=== PATIENT | female | born 1970 | race Caucasian/White ===

== ENCOUNTER 2020-04-06 20:54 | Inpatient (IN) | payer BC, SELFPAY ==
--- NOTE | 2020-04-06 | US_ITS ---
Indication: Redness EXAMINATION: Diagnostic ultrasound right breast. Findings; Real-time by the director of loss prevention. The patient directs the director of loss prevention to the region of pain problem o'clock in the right breast. Some prominent ducts are seen here but there is no evidence of suspicious filling defect to suggest complication. No evidence for significant wall thickening. There is certainly no loculated abscess here. No mass is identified. IMPRESSION: Where the patient directs the director of loss prevention 12:00 right breast there is felt to be some dilated ducts and possibly some mildly complex cystic change but no defined abscess is felt to be present. Assessment; BI-RADS 0. Recommendation; diagnostic mammogram
[2020-04-06 21:05] VITALS: BP 169/85; PULSE 94; RESP 18; TEMP 37.8; O2SAT 94; BMI 39.9
[2020-04-06 21:50] LABS: Basophils Percent Auto 0.2 % (0-2); Eosinophils Absolute Auto 0.2 X10*3/uL (0.0-0.4); Hematocrit 35.8 % (37-47); Hemoglobin 12.2 g/dl (12.0-16.0); Imm Gran Abs Auto 0.08 X10*3/uL (0.00-0.03); Imm Gran Pct Auto 0.5 % (0.0-0.4); Lymphocytes Absolute Auto 1.7 X10*3/uL (1.2-4.9); Mean Corpuscular HGB Conc 34.1 g/dl (31.0-35.0); Mean Corpuscular Hemoglobin 32.1 pg (27.0-33.0); Mean Corpuscular Volume 94.2 fL (80-98); Mean Platelet Volume 9.3 fL (9.4-12.3); Monocytes Absolute Auto 0.9 X10*3/uL (0.1-1.2); Monocytes Percent Auto 5.4 % (2-11); Neutrophils Absolute Auto 13.6 X10*3/uL (2.0-8.3); Neutrophils Percent Auto 82.9 % (45-73); Platelet Count 319 X10*3/uL (160-400); Red Cell Distribution Width 12.4 % (11.0-16.0); White Blood Count 16.4 X10*3/uL (4.8-10.8)
[2020-04-06 21:51] LABS: MANUAL DIFF FLAG NO
[2020-04-06] MEDS: Piperacillin Sodium/Tazobactam 3.375 GM in 0.9 % Sodium Chloride 50 ML IV (21:54)
[2020-04-06] MEDS: Ketorolac Tromethamine 30 MG/ML VIAL IVPUSH (21:54)
[2020-04-06 22:05] LABS: Partial Thromboplastin Time 27.2 SEC (24.1-38.0)
[2020-04-06 22:09] LABS: INTERNATIONAL NORM RATIO 1.1 (0.9-1.1); Prothrombin Time 13.1 SEC (10.8-13.0)
[2020-04-06 22:20] LABS: Lactic Acid 0.8 mmol/L (0.5-2.0)
[2020-04-06 22:24] LABS: Alanine Aminotransferase 23 U/L (0-31); Albumin Level 3.9 g/dL (3.5-5.0); Alkaline Phosphatase 97 U/L (39-117); Anion Gap 15 (12-20); Aspartate Amino Transferase 16 U/L (5-31); Bilirubin Direct 0.3 mg/dL (0.0-0.5); Bilirubin Total 0.4 mg/dL (0.0-1.0); Blood Urea Nitrogen 16 mg/dL (9-16); Calcium 9.1 mg/dL (8.4-10.2); Carbon Dioxide 21 mmol/L (22-29); Chloride 107 mmol/L (96-108); Creatinine Clr Calc Pharmacy 112.3; Estimated Glomerular Filt Rate > 60; Glucose Random 100 mg/dL (60-115); Lipase 10 U/L (8-78); Potassium 3.5 mmol/l (3.3-5.1); Sodium 139 mmol/L (135-145); Total Protein 6.6 g/dL (6.5-8.0)
[2020-04-06 22:41] VITALS: BP 137/73; PULSE 79; RESP 16; TEMP 36.6; O2SAT 98
--- NOTE | 2020-04-06 22:47 | ED.GENADULT ---
HPI - General Adult General Chief complaint: General Medical Stated complaint: SEPSIS? Time Seen by Provider: 04/06/20 21:17 Mode of arrival: ambulatory History of Present Illness HPI narrative: 49-year-old female states for the past 5 days noticed a small redness to her right breast. Saw her OBGYN and sent to Interventional Radiology for needle aspiration. At that point yesterday she was placed on p.o. Keflex. Since then her redness that has worsened. Today she had reported fevers 101 at home. Positive chills. Denies discharge from nipple. Denies any spider bites or scrapes abrasions to right breast. Patient is not Onset (ago): day(s) ( 5 days) Severity: moderate Severity scale (1-10): 4 Associated symptoms: nausea/vomiting Related Data Home Medications Medication Instructions Recorded Confirmed Lamictal 200 mg PO DAILY 04/06/20 04/06/20 Allergies Allergy/AdvReac Type Severity Reaction Status Date / Time No Known Allergies Allergy Verified 04/06/20 21:05 Review of Systems Constitutional: Comments: Constitutional : No Weight loss, positive Fever, positive Chills, No Night Sweats, No Fatigue, No Malaise ENT/Mouth : No Hearing loss, No Ear Pain, No Nasal Congestion, No Sinus Pain, No Hoarseness, No sore throat, No Rhinorrhea, No Swallowing Difficulty Eyes: No Eye Pain, No Swelling, No Redness, No Foreign Body, No Discharge, No Vision Changes Cardiovascular : No Chest Pain, No SOB, No Dyspnea on Exertion, No Orthopnea, No Edema, No Palpitations Respiratory : No Cough, No Sputum, No Wheezing, No Smoke Exposure, No Dyspnea Gastrointestinal : No Nausea, No Vomiting, No Diarrhea, No Constipation, No abdominal Pain, No Hematochezia, No Melena Genitourinary : no irregular bleeding, No Dysuria, No Urinary Frequency, No Hematuria, No Urinary Incontinence, No Urgency, No Flank Pain, No Urinary Flow Changes, No Hesitancy Musculoskeletal : No joint pain, No Myalgias, No Joint Swelling Skin : No Skin Lesions, red erythematous rash to right breast Neuro : No Weakness, No Numbness, No Paresthesias, No Loss of Consciousness, No Dizziness, No Headache Psych : No Anxiety/Panic, No Depression, No SI/HI/AH/VH, No Social Issues, Heme/Lymph: No Bruising, No Bleeding,No Lymphadenopathy Endocrine : No Polyuria, No Polydipsia, No Temperature Intolerance [facility] Past Medical History Surgical History H/O tubal ligation Family History Family History Other Family history non-contributory Social History Social History Advance Directives: No Advance Directives Information Provided: No Physical Exam Vital Signs and I&O and Narrative: Vital Signs and I&O: Vital Signs Temp 97.8 F 04/07/20 03:46 Pulse 80 04/07/20 03:46 Resp 18 04/07/20 03:46 BP 141/85 H 04/07/20 03:46 Pulse Ox 99 04/07/20 03:46 Intake & Output 04/06/20 04/06/20 04/07/20 06:59 18:59 06:59 Intake Total 3315.86 / 3420.86 Balance 3315.86 / 3420.86 Weight 108.862 kg Intake: Intake, IV Amoun t 3315.86 / 3420.86 Piperacillin S odium/Tazobactam 50 / 50 3.375 gm In 0. 9 % Sodium Chloride 50 ml @ 100 mls/hr IV ONCE ONE Rx#:[id number] 0.9 % Sodium C hloride 3,265.86 3265.86 / 3265.86 ml @ 3265.86 m ls/hr IVCONT .Q1H ONE Rx#:[id number] Body Mass Index 39.9 vital signs reviewed Const: Other: Appearance: Alert. Oriented X3. No acute distress. Eyes: Pupils equal, round and reactive to light. ENT: Pharynx normal. Neck: Normal inspection. Neck supple. No lymph nodes noted. No crepitus CVS: Normal heart rate and rhythm. Pulses normal. Normal S1 and S2 Respiratory: No respiratory distress. Breath sounds normal. No Wheezing. No rales Abdomen: Soft and nontender. No rigidity. No distention. good BS x4 Skin: Skin warm and dry. Normal skin color. Normal skin turgor. Extremities: No lower extremity edema. Neurovascular intact to all extremities. No Lacerations. No Rash Neuro: Oriented X 3. No motor deficit. No sensory deficit. Moving all extermities. No slurred speech. breast: female staff at bedside for evaluation. Sandra, patient with right breast erythema distally. However superior to the areola. No discharge from nipple Course Course Course Narrative: multiple real exams were performed on patient by me. Secondary to suspect sepsis. Will get an ultrasound to rule out abscess IV fluids and IV antibiotics Reevaluation(s) Reevaluation #1: focused exam performed by me at this point I spoke with Dr. Freddy marvin would admit the patient Time: 22:52 Medical Decision Making MDM Narrative Medical decision making narrative: 49-year-old female admitted with sepsis, right breast cellulitis, no abscess seen on ultrasound. Patient receive IV antibiotics admission Lab Data Result diagrams: 04/07/20 04:37 04/07/20 04:37 Labs: Lab Results 04/06/20 04/06/20 04/06/20 Range/Units 21:43 21:43 21:43 WBC 16.4 H (4.8-10.8) X10*3/uL RBC 3.80 L (4.20-5.50) X10*6/uL Hgb 12.2 (12.0-16.0) g/dl Hct 35.8 L (37-47) % MCV 94.2 (80-98) fL MCH 32.1 (27.0-33.0) pg MCHC 34.1 (31.0-35.0) g/dl RDW 12.4 (11.0-16.0) % Plt Count 319 (160-400) X10*3/uL MPV 9.3 L (9.4-12.3) fL Immature Gran % (Auto) 0.5 H (0.0-0.4) % Neut % (Auto) 82.9 H (45-73) % Lymph % (Auto) 10.0 L (20-40) % [place] % (Auto) 5.4 (2-11) % Eos % (Auto) 1.0 (0-4) % Baso % (Auto) 0.2 (0-2) % Lymph # (Auto) 1.7 (1.2-4.9) X10*3/uL [place] # (Auto) 0.9 (0.1-1.2) X10*3/uL Eos # (Auto) 0.2 (0.0-0.4) X10*3/uL Baso # (Auto) 0.0 (0.0-0.2) X10*3/uL Abs Immat Gran (auto) 0.08 H (0.00-0.03) X10*3/uL Absolute Neuts (auto) 13.6 H (2.0-8.3) X10*3/uL Absolute Nucleated RBC 0.000 (0.0-0.012) X10*3/uL Nucleated RBC % (auto) 0.0 (0.0-0.2) /100WBC PT 13.1 H (10.8-13.0) SEC INR 1.1 (0.9-1.1) APTT 27.2 (24.1-38.0) SEC Sodium 139 (135-145) mmol/L Potassium 3.5 (3.3-5.1) mmol/l Chloride 107 (96-108) mmol/L Carbon Dioxide 21 L (22-29) mmol/L Anion Gap 15 (12-20) BUN 16 (9-16) mg/dL Creatinine 0.76 (0.5-1.4) mg/dL Estim Creat Clear Calc 112.3 Estimated GFR > 60 Random Glucose 100 (60-115) mg/dL Lactic Acid (0.5-2.0) mmol/L Calcium 9.1 (8.4-10.2) mg/dL Total Bilirubin 0.4 (0.0-1.0) mg/dL Direct Bilirubin 0.3 (0.0-0.5) mg/dL AST 16 (5-31) U/L ALT 23 (0-31) U/L Alkaline Phosphatase 97 (39-117) U/L Total Protein 6.6 (6.5-8.0) g/dL Albumin 3.9 (3.5-5.0) g/dL Lipase 10 (8-78) U/L 04/06/20 Range/Units 21:43 WBC (4.8-10.8) X10*3/uL RBC (4.20-5.50) X10*6/uL Hgb (12.0-16.0) g/dl Hct (37-47) % MCV (80-98) fL MCH (27.0-33.0) pg MCHC (31.0-35.0) g/dl RDW (11.0-16.0) % Plt Count (160-400) X10*3/uL MPV (9.4-12.3) fL Immature Gran % (Auto) (0.0-0.4) % Neut % (Auto) (45-73) % Lymph % (Auto) (20-40) % [place] % (Auto) (2-11) % Eos % (Auto) (0-4) % Baso % (Auto) (0-2) % Lymph # (Auto) (1.2-4.9) X10*3/uL [place] # (Auto) (0.1-1.2) X10*3/uL Eos # (Auto) (0.0-0.4) X10*3/uL Baso # (Auto) (0.0-0.2) X10*3/uL Abs Immat Gran (auto) (0.00-0.03) X10*3/uL Absolute Neuts (auto) (2.0-8.3) X10*3/uL Absolute Nucleated RBC (0.0-0.012) X10*3/uL Nucleated RBC % (auto) (0.0-0.2) /100WBC PT (10.8-13.0) SEC INR (0.9-1.1) APTT (24.1-38.0) SEC Sodium (135-145) mmol/L Potassium (3.3-5.1) mmol/l Chloride (96-108) mmol/L Carbon Dioxide (22-29) mmol/L Anion Gap (12-20) BUN (9-16) mg/dL Creatinine (0.5-1.4) mg/dL Estim Creat Clear Calc Estimated GFR Random Glucose (60-115) mg/dL Lactic Acid 0.8 (0.5-2.0) mmol/L Calcium (8.4-10.2) mg/dL Total Bilirubin (0.0-1.0) mg/dL Direct Bilirubin (0.0-0.5) mg/dL AST (5-31) U/L ALT (0-31) U/L Alkaline Phosphatase (39-117) U/L Total Protein (6.5-8.0) g/dL Albumin (3.5-5.0) g/dL Lipase (8-78) U/L Critical Care Time Critical Care Time Critical Care Time: Yes Total Critical Care Time: 35 Attestation: I tested critical care time spent with patient Discharge Plan Discharge Clinical Impression: Cellulitis of female breast Sepsis Qualifiers: Sepsis type: sepsis due to unspecified organism Sepsis acute organ dysfunction status: without acute organ dysfunction Qualified Code(s): A41.9 - Sepsis, unspecified organism Patient Disposition: Admitted As Inpatient Interventions: Admission Worksheet (ED) Last Done: 04/07/20 03:38 Discharge Date/Time: 04/07/20 03:39
[2020-04-07 00:24] VITALS: BP 156/87; PULSE 83; RESP 18; O2SAT 99
[2020-04-07] MEDS: ondansetron HCL 4 MG/2 ML VIAL IVPUSH (00:58)
--- NOTE | 2020-04-07 00:59 | PC.NURSE ---
Pt medicated per EMAR with Zofran. Pt reports that pain remaisn 5/10, increases with movement and position. Pt resting in bed watching TV, aware of plan to admit.
--- NOTE | 2020-04-07 02:29 | PM.IMHP ---
History of Present Illness Date of Service: 04/07/20 Chief Complaint: right breast pain 49 y/o female with PMHX of seizure who presented from home due to right breast pain. Per history provided by the patient, on thursday night noticed a significant discomfort in the rigth breast which was subsequently followed by a worsening erythema on thursday morning. Patient was evaluated by her OBGYN and started on Keflex yesterday for cellulitis. Patient went as well for an IR guided procedure in the right breast for a suspected obstructed mammary duct . A small serosanguienos fluid of 1ml was drained per patient during that procedure. After starting PO antbx noticed that eyrethema and discomfort has been worsening since and now is associated with chills and fever at home of 101. Patient presented to the ER for further evaluation. Vitals obtained found patient to be hypertensive 169/85 mmHg, temp of 100.1, HR of 94, WBC of 16. US breast showing no evidence of underlying abscess at present. Sepsis criteria met. Bcx obtained and patient was given one dose of zosyn. Decision for admission given. Patient seen and evaluated at the bedside, ROS as above otherwise negative. Physical exam positive for Right breast tenderness, erythema around areola, hot to touch. PMHX: Seizure PSx: none Toxic habits: No hx of alcohol abuse, smoking or IVDA Review of Systems Constitutional: Constitutional: Reports other (chills, fever ) Integumentary/Breasts: Skin/Breast: Reports other (right breast pain, erythema ) PMFSH Family History Other Family history non-contributory Surgical History H/O tubal ligation Social History Advance Directives: No Advance Directives Information Provided: No Meds Allergies Allergy/AdvReac Type Severity Reaction Status Date / Time No Known Allergies Allergy Verified 04/06/20 21:05 Home Medications Medication Instructions Recorded Confirmed Type Lamictal 200 mg PO DAILY 04/06/20 04/06/20 History Physical Exam Vital Signs and Narrative: Vital Signs: Last Vital Signs Temp 97.8 F 04/06/20 22:41 Pulse 83 10/10/20 00:24 Resp 18 04/07/20 00:24 BP 156/87 H 04/07/20 00:24 Pulse Ox 99 04/07/20 00:24 Body Mass Index 39.9 Const: General: cooperative, healthy appearing and comfortable Orientation/consciousness: patient oriented x3 HENMT: Head: Yes normal to inspection Eyes: General: appearance normal, both eyes and all related structures Neck: Yes normal visual inspection Chest: Chest palpation & inspection: normal inspection of the chest Resp: Effort & Inspection: normal respiratory effort Cardio: Jugular venous distension: no JVD Rhythm: regular rhythm Heart sounds: S1 normal heart sound present and S2 normal heart sound present GI: Inspection: Yes normal to inspection Skin: Nails: other (right breast tenderness, erythema) Neuro: General: patient oriented x3 Extrem: General: Yes normal to inspection Psych: Appearance: grossly normal Results Labs Labs: Laboratory Tests 04/06/20 04/06/20 04/06/20 21:43 21:43 21:43 WBC 16.4 H RBC 3.80 L Hgb 12.2 Hct 35.8 L MCV 94.2 MCH 32.1 MCHC 34.1 RDW 12.4 Plt Count 319 MPV 9.3 L Immature Gran % (Auto) 0.5 H Neut % (Auto) 82.9 H Lymph % (Auto) 10.0 L [place] % (Auto) 5.4 Eos % (Auto) 1.0 Baso % (Auto) 0.2 Lymph # (Auto) 1.7 [place] # (Auto) 0.9 Eos # (Auto) 0.2 Baso # (Auto) 0.0 Abs Immat Gran (auto) 0.08 H Absolute Neuts (auto) 13.6 H Absolute Nucleated RBC 0.000 Nucleated RBC % (auto) 0.0 PT 13.1 H INR 1.1 APTT 27.2 Sodium 139 Potassium 3.5 Chloride 107 Carbon Dioxide 21 L Anion Gap 15 BUN 16 Creatinine 0.76 Estim Creat Clear Calc 112.3 Estimated GFR > 60 Random Glucose 100 Lactic Acid Calcium 9.1 Total Bilirubin 0.4 Direct Bilirubin 0.3 AST 16 ALT 23 Alkaline Phosphatase 97 Total Protein 6.6 Albumin 3.9 Lipase 10 04/06/20 21:43 WBC RBC Hgb Hct MCV MCH MCHC RDW Plt Count MPV Immature Gran % (Auto) Neut % (Auto) Lymph % (Auto) [place] % (Auto) Eos % (Auto) Baso % (Auto) Lymph # (Auto) [place] # (Auto) Eos # (Auto) Baso # (Auto) Abs Immat Gran (auto) Absolute Neuts (auto) Absolute Nucleated RBC Nucleated RBC % (auto) PT INR APTT Sodium Potassium Chloride Carbon Dioxide Anion Gap BUN Creatinine Estim Creat Clear Calc Estimated GFR Random Glucose Lactic Acid 0.8 Calcium Total Bilirubin Direct Bilirubin AST ALT Alkaline Phosphatase Total Protein Albumin Lipase Assessment and Plan (1) Cellulitis of female breast: Status: Acute (2) Sepsis: Qualifiers: Sepsis acute organ dysfunction status: without acute organ dysfunction Sepsis type: sepsis due to unspecified organism Qualified Code(s): A41.9 - Sepsis, unspecified organism Status: Acute (3) Seizure: Status: Acute Sepsis likely secondary to right breast cellulitis Hypertensive at present 156/87 mmHg. HR of 83 IV hydration. Keep MAP >65 mmHg Lactate normal Continue with unasyn for gram neg / anaerobic coverage Follow up Bcx Infectious disease consult in the am Hx of Seizures continue with lamictal home dose
[2020-04-07 02:55] VITALS: BP 154/87; PULSE 79; RESP 16
--- NOTE | 2020-04-07 03:08 | PC.NURSE ---
Report given to M/S RN. Dr Hayes contacted for orders regarding administration of Hydralazine due to BP of 150/74. Awaiting instructions prior to transport to floor.
--- NOTE | 2020-04-07 03:28 | PC.NURSE ---
Per MD Freddy Marvin, to hold Hydralazine due to decreased BP.
[2020-04-07] MEDS: 0.9 % Sodium Chloride 1,000 ML 75 ML IVCONT ×2 (03:39→16:53)
[2020-04-07 03:46] VITALS: BP 141/85; PULSE 80; RESP 18; TEMP 36.6; O2SAT 99
[2020-04-07 04:42] LABS: MANUAL DIFF FLAG NO
[2020-04-07 04:48] LABS: Basophils Percent Auto 0.3 % (0-2); Eosinophils Absolute Auto 0.2 X10*3/uL (0.0-0.4); Eosinophils Percent Auto 1.2 % (0-4); Hematocrit 33.7 % (37-47); Hemoglobin 11.5 g/dl (12.0-16.0); Imm Gran Abs Auto 0.08 X10*3/uL (0.00-0.03); Imm Gran Pct Auto 0.5 % (0.0-0.4); Lymphocytes Absolute Auto 2.6 X10*3/uL (1.2-4.9); Lymphocytes Percent Auto 16.4 % (20-40); Mean Corpuscular HGB Conc 34.1 g/dl (31.0-35.0); Mean Corpuscular Hemoglobin 32.9 pg (27.0-33.0); Mean Corpuscular Volume 96.3 fL (80-98); Mean Platelet Volume 9.4 fL (9.4-12.3); Monocytes Percent Auto 6.4 % (2-11); Neutrophils Absolute Auto 11.8 X10*3/uL (2.0-8.3); Neutrophils Percent Auto 75.2 % (45-73); Platelet Count 291 X10*3/uL (160-400); Red Cell Distribution Width 12.5 % (11.0-16.0); White Blood Count 15.6 X10*3/uL (4.8-10.8)
[2020-04-07] MEDS: Ampicillin Sodium/Sulbactam Na 1.5 GM in 0.9 % Sodium Chloride 100 ML IV ×2 (05:00→11:21)
[2020-04-07] MEDS: Ketorolac Tromethamine 15 MG/ML VIAL IVPUSH (05:01)
--- NOTE | 2020-04-07 05:10 | MHC.PIE ---
P; PT ARRIVED FROM ED C/O PAIN TO GEN BODY AND RT BREAST. NOTE; PT REPORTS TORADOL IN ED WORED FOR PAIN, PT ASLO ASKING FOR MOTRIN 800 MG PO Q6 FOR PAIN. NOTE; PT HAD NAUSEA IN ED, ZOFRAN GIVEN WITH GOOD EFFECT, ? NO PRN ZOFRAN ? I; DR SMART NOTIFIED; TORADOL 15 MG IV NOW E; WILL CONT TO MONITOR
[2020-04-07 05:13] LABS: Alanine Aminotransferase 20 U/L (0-31); Albumin Level 3.6 g/dL (3.5-5.0); Alkaline Phosphatase 87 U/L (39-117); Anion Gap 11 (12-20); Aspartate Amino Transferase 15 U/L (5-31); Bilirubin Total 0.3 mg/dL (0.0-1.0); Blood Urea Nitrogen 11 mg/dL (9-16); Carbon Dioxide 21 mmol/L (22-29); Chloride 111 mmol/L (96-108); Creatinine Clr Calc Pharmacy 123.7; Estimated Glomerular Filt Rate > 60; Glucose Random 76 mg/dL (60-115); Potassium 3.4 mmol/l (3.3-5.1); Sodium 140 mmol/L (135-145); Total Protein 6.1 g/dL (6.5-8.0)
[2020-04-07 07:48] VITALS: BP 155/88; PULSE 84; RESP 18; TEMP 37.3; O2SAT 99
[2020-04-07] MEDS: 0.9 % Sodium Chloride Flush 3 ML SYRINGE IVFLUSH (07:48)
[2020-04-07] MEDS: lamoTRIgine 100 MG TABLET 200 MG PO (07:49)
[2020-04-07] MEDS: oxyCODONE HCl Immed Release 5 MG TABLET PO ×4 (08:20→23:54)
--- NOTE | 2020-04-07 11:34 | MHC.CM.PN ---
SHIPPING CLERK CRATING completed with pt and daughter who was at bedside. Pt reports she lives at home with her 16 yo daughter but spends half of her time at her older daughters home. Pt does not have any DME not any home services. Pt does drive and her car is here. Pt does not have a PCP at this time but does know how to obtain one based on her insurance protocol. Pt completed a HCP today naming her older daughter, Leigha Miller ([phone]) as her agent. Current DC plan is home with no services
[2020-04-07] MEDS: Acetaminophen 325 MG TABLET 650 MG PO ×2 (12:42→18:48)
--- NOTE | 2020-04-07 14:59 | W.PM.IDCN ---
History of Present Illness Data of Consult Service Date: 04/07/20 Requesting physician: Perico Carvalho Primary Care Provider: None Physician HPI Reason for consult: breast pain right She presents with right breast pain for 4 days She woke up at night with pain Thursday night She felt pain worse next day and had u/s right breast showed fluid on 04/05 She has staph aureus culture,MSSA She doesnt get mammograms Review of Systems Review of Systems: Yes all other systems are reviewed and are negative Integumentary/Breasts: Skin/Breast: Reports skin swelling PMFSH Family History Family History Other Family history non-contributory Surgical History Surgical History H/O tubal ligation Social History Social History Currently Displaying Signs/Symptoms of Drug Intoxication Withdrawal: No Advance Directives: No Advance Directives Information Provided: No Do you have thoughts of harming others: None Do you have a plan to hurt others: No Plan service: No Current occupational status: employed Meds Allergies Allergy/AdvReac Type Severity Reaction Status Date / Time No Known Allergies Allergy Verified 04/06/20 21:05 Home Medications Medication Instructions Recorded Confirmed Type Lamictal 200 mg PO DAILY 04/06/20 04/06/20 History Physical Exam Vital Signs: Vital Signs: Vital Signs Temp Pulse Resp BP Pulse Ox 04/07/20 07:48 99.1 F 84 18 155/88 H 99 04/07/20 03:46 97.8 F 80 18 141/85 H 99 04/07/20 02:55 79 16 154/87 H 04/07/20 00:24 83 18 156/87 H 99 04/06/20 22:41 97.8 F 79 16 137/73 98 04/06/20 21:05 100.1 F 94 18 169/85 H 94 Body Mass Index 39.9 Const: General: cooperative HENMT: Head: Yes normal to inspection Resp: Effort & Inspection: normal respiratory effort Cardio: Jugular venous distension: no JVD GI: Inspection: Yes normal to inspection Abdomen image: 1. breast thickening 2. breast thickening,redness 3. nipple some puckering Assessment and Plan (1) Cellulitis of female breast: Problem details: She has fever and redness MSSA Status: Acute May continue Unasyn Duration to be determined Surgery to look at area determine if abscess,less likely breast cancer
[2020-04-07 15:14] VITALS: BP 115/63; PULSE 86; RESP 18; TEMP 36.5; O2SAT 95
[2020-04-07] MEDS: Clindamycin Phosphate/D5W 900 MG/50 ML PIGGYBACK 50 MG IV (16:57)
--- NOTE | 2020-04-07 17:41 | PM.EVENT ---
Event Note Event Note: Day team follow up S seen this Am feeling better but still some pain, denies discharge records obtained from c&s done at outside facility (on the physical chart) O vitals -- last documented gen - nad cvs - s1s2 lungs - clear abd - soft nt skin -- R breast erythema, tenderness; do feel in area of induration without fluctuation, some nipple puckering? A/P 49 yo with breast cellulitis C&S from cultures drawn at outside facility -- MSSA, resistant to amp but otherwise okay changed iv antibiotics to clinda (d/w ID) ID iput appreciated will have surgical consult
[2020-04-07 23:38] VITALS: BP 119/75; PULSE 78; RESP 16; TEMP 36.9; O2SAT 96
[2020-04-07] MEDS: Clindamycin Phosphate/D5W 900 MG/50 ML PIGGYBACK 100 MG IV (23:55)
[2020-04-08] MEDS: Acetaminophen 325 MG TABLET 650 MG PO ×4 (00:56→20:58)
[2020-04-08] MEDS: oxyCODONE HCl Immed Release 5 MG TABLET PO ×5 (06:26→22:41)
[2020-04-08] MEDS: 0.9 % Sodium Chloride 1,000 ML 75 ML IVCONT (06:27)
[2020-04-08] MEDS: Clindamycin Phosphate/D5W 900 MG/50 ML PIGGYBACK 50 MG IV ×2 (07:49→16:38)
[2020-04-08] MEDS: lamoTRIgine 100 MG TABLET 200 MG PO (07:53)
[2020-04-08 07:55] LABS: MANUAL DIFF FLAG NO
[2020-04-08 08:00] VITALS: BP 168/82; PULSE 70; RESP 20; TEMP 37.1; O2SAT 96
[2020-04-08 08:07] LABS: Basophils Percent Auto 0.4 % (0-2); Eosinophils Absolute Auto 0.2 X10*3/uL (0.0-0.4); Eosinophils Percent Auto 1.9 % (0-4); Hematocrit 34.1 % (37-47); Hemoglobin 11.5 g/dl (12.0-16.0); Imm Gran Abs Auto 0.08 X10*3/uL (0.00-0.03); Imm Gran Pct Auto 0.8 % (0.0-0.4); Lymphocytes Percent Auto 19.5 % (20-40); Mean Corpuscular HGB Conc 33.7 g/dl (31.0-35.0); Mean Corpuscular Hemoglobin 32.4 pg (27.0-33.0); Mean Corpuscular Volume 96.1 fL (80-98); Mean Platelet Volume 9.3 fL (9.4-12.3); Monocytes Absolute Auto 0.8 X10*3/uL (0.1-1.2); Monocytes Percent Auto 7.8 % (2-11); Neutrophils Absolute Auto 7.2 X10*3/uL (2.0-8.3); Neutrophils Percent Auto 69.6 % (45-73); Platelet Count 302 X10*3/uL (160-400); Red Blood Count 3.55 X10*6/uL (4.20-5.50); Red Cell Distribution Width 12.6 % (11.0-16.0); White Blood Count 10.3 X10*3/uL (4.8-10.8)
[2020-04-08 08:26] LABS: Anion Gap 13 (12-20); Blood Urea Nitrogen 6 mg/dL (9-16); Calcium 8.4 mg/dL (8.4-10.2); Carbon Dioxide 22 mmol/L (22-29); Chloride 108 mmol/L (96-108); Creatinine Clr Calc Pharmacy 127.3; Estimated Glomerular Filt Rate > 60; Glucose Random 93 mg/dL (60-115); Potassium 3.5 mmol/l (3.3-5.1); Sodium 139 mmol/L (135-145)
--- NOTE | 2020-04-08 09:22 | P.CONGS_ITS ---
History of Present Illness Consult details Consult date: 04/08/20 Reason for consult: other ( mastodynia) Requesting physician: Angelique Walter Narrative: 49-year-old female patient presenting with a 1 week history of redness and pain in the right breast. Patient denies a prior history of breast infections or breast surgery. 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 Dilated, fluid-filled ducts were identified. An aspiration was performed but unfortunately the results of this study are not available at this time. She was started on Keflex by mouth but continue to know increased pain and redness. She subsequently presented to the emergency department yesterday due to the increased pain. A repeat ultrasound of the right breast was negative for an abscess but did revealed dilated lactiferous ducts. She denies a previous history of breast problems or breast surgery. She denies a history of breast cancer or family history of breast cancer. She has a distant history of smoking but denies currently smoking. Since being admitted to the hospital she does note a decrease in the redness especially in the upper portion of the breast. She finds it more comfortable if the breast is elevated on a pillow. She denies any bleeding or discharge from the nipples. Review of Systems Constitutional: Constitutional: Denies chills, Denies fever(s) and Denies poor appetite Cardiovascular: Cardiovascular: Denies chest pain, Denies rapid heart rate, Denies palpitations and Denies slow heart rate Respiratory: Respiratory: Denies chest congestion, Denies cough, Denies pain on inspiration and Denies wheezing Gastrointestinal: Gastrointestinal: Denies no additional gastrointestinal complaints Musculoskeletal: Musculoskeletal: Denies no additional musculoskeletal complaints Integumentary/Breasts: Skin/Breast: Reports breast swelling, Reports breast pain, Reports change in pigmentation, Denies lesions, Reports erythema and Denies sores Neurologic: Denies confusion Psychiatric: Psychiatric: Denies anxiety, Denies confusion and Denies depression Endocrine: Endocrine: Denies palpitations Hematologic/Lymphatic: Hematologic/Lymphatic: Denies easy bleeding, Denies easy bruising and Denies lymphadenopathy Allergic/Immunologic: Allergic/Immunologic: Denies wheezing PMFSH Past Medical History Medical History (Updated 04/08/20 @ 09:28 by Esteban Burroughs MD) Depression Seizure Family History Family History Other Family history non-contributory Surgical History Surgical History (Updated 04/08/20 @ 09:29 by Esteban Burroughs MD) H/O tubal ligation History of cholecystectomy Hx of tonsillectomy Social History Social History Currently Displaying Signs/Symptoms of Drug Intoxication Withdrawal: No Advance Directives: No Advance Directives Information Provided: No Do you have thoughts of harming others: None Do you have a plan to hurt others: No Plan service: No Current occupational status: employed Meds Allergies Allergy/AdvReac Type Severity Reaction Status Date / Time No Known Allergies Allergy Verified 04/06/20 21:05 Home Medications Medication Instructions Recorded Confirmed Type Lamictal 200 mg PO DAILY 04/06/20 04/06/20 History Physical Exam Vital Signs: Vital Signs: Vital Signs Temp Pulse Resp BP Pulse Ox 04/08/20 08:00 98.7 F 70 20 168/82 H 94 04/07/20 23:38 98.4 F 78 16 119/75 96 04/07/20 15:14 97.7 F 86 18 115/63 95 Body Mass Index 39.9 Const: General: cooperative, no acute distress and alert; No confusion Orientation/consciousness: patient oriented x3 and No confusion Eyes: Sclerae: sclerae normal EOM: EOMs intact bilaterally Chest: Breast/axilla inspection: abnormal inspection of the breast right erythema; no peau d'orange, no nipple discharge, retraction not noted and no scar Breast/axilla palpation: abnormal palpation of the axilla ( tender and inflamed) right Chest/axillae images: 1. site of induration and erythema. Erythema is within the skin marking at the superior breast 2. site of needle aspiration, ecchymosis Resp: Effort & Inspection: normal respiratory effort Auscultation: clear to auscultation bilaterally Cardio: Jugular venous distension: no JVD Rate: regular rate Rhythm: regular rhythm Heart sounds: S1 normal heart sound present and S2 normal heart sound present GI: Inspection: Yes normal to inspection Palpation (GI): Soft to palpation Percussion: Yes normal to percussion Auscultation: normal bowel sounds Skin: General skin exam: no rashes or lesions noted and turgor normal Neuro: General: patient oriented x3 and No confusion Gait exam (Neuro): Normal gait present Extrem: General: Yes normal to inspection, Yes full ROM and Yes no pedal edema Psych: Speech and movement: Normal speech and movement present Affect: normal affect Results Labs Result diagrams: 04/08/20 07:29 04/08/20 07:35 Labs: Abnormal lab results 04/08/20 04/08/20 Range/Units 07:29 07:35 RBC 3.55 L (4.20-5.50) X10*6/uL Hgb 11.5 L (12.0-16.0) g/dl Hct 34.1 L (37-47) % MPV 9.3 L (9.4-12.3) fL Immature Gran % (Auto) 0.8 H (0.0-0.4) % Lymph % (Auto) 19.5 L (20-40) % Abs Immat Gran (auto) 0.08 H (0.00-0.03) X10*3/uL BUN 6 L (9-16) mg/dL Short CBC 04/08/20 Range/Units 07:29 WBC 10.3 (4.8-10.8) X10*3/uL Hgb 11.5 L (12.0-16.0) g/dl Hct 34.1 L (37-47) % Plt Count 302 (160-400) X10*3/uL BMP 04/08/20 07:35 Sodium 139 Potassium 3.5 Chloride 108 Carbon Dioxide 22 BUN 6 L Creatinine 0.67 Calcium 8.4 All other labs normal. Assessment and Plan (1) Cellulitis of female breast: Problem details: She has fever and redness MSSA Status: Acute patient presents with a recent onset of erythema and tenderness of the right breast which initially was resistant to the oral antibiotic. Evaluation ultrasound of the breast revealed dilated lactiferous ducts. Examination revealed no evidence of orange skin change or discrete mass rather there is diffuse thickening of the breast tissue consistent with a mastitis. No areas of fluctuance is appreciated. I do not see changes suggestive of an inflammatory breast cancer but this certainly bears watching to assure resolution. Agree with the current management with antibiotics. A mammogram should be obtained once she is less symptomatic. I will follow her during this hospitalization and she is welcome to return to my office for follow-up as an outpatient.
--- NOTE | 2020-04-08 13:09 | MHC.CM.PN ---
PATIENT GIVEN [facility] PROVIDER LIST PACKET. SHE REPORTS THAT SHE WILL CALL ON THURSDAY TO ASK WHO MAY BE ACCEPTING NEW PATIENTS.
--- NOTE | 2020-04-08 13:48 | HO.PM.IMPN ---
Subjective Subjective Date of Service: 04/08/20 Interval History: Seen and examined this morning Reports feeling much better denies fevers or chills Reports breast pain is also improving Review of Systems General - no fevers or chills Cardiovascular - no chest pain Respiratory - no shortness of breath or cough Abdominal- no abdominal pain, nausea, vomiting, diarrhea breast - pain improving Physical Exam Vital Signs: Vital Signs: Vital Signs Temp Pulse Resp BP Pulse Ox 04/08/20 08:00 98.7 F 70 20 168/82 H 96 04/07/20 23:38 98.4 F 78 16 119/75 96 04/07/20 15:14 97.7 F 86 18 115/63 95 Body Mass Index 39.9 General - no acute distress, appears comfortable Cardiovascular - regular rate and rhythm, S1-S2 Lungs - normal respiratory effort, clear to auscultation bilaterally, no wheezing Abdomen - soft, nontender, no rebound regarding Extremities - no edema bilaterally Neuro - awake and alert, no focal deficits skin / brest -- R breast erythema significantly improved, induration improved, remains without Fluctuance Objective Data Current Medications Generic Name Dose Route Start Last Admin Trade Name Freq PRN Reason Stop Dose Admin Acetaminophen 650 mg 04/07/20 12:18 04/08/20 07:53 Acetaminophen 325 Mg Tablet PO 650 mg Q6H PRN Administration fever, mild pain Sodium Chloride 1,000 mls @ 75 mls/hr 04/07/20 03:00 04/08/20 06:27 Ns IVCONT 75 mls/hr .[id number] ANGIE Administration Clindamycin Phosphate 900 mg in 50 mls @ 50 mls/hr 04/07/20 16:00 04/08/20 10:03 Cleocin IV Infused Q8H ANGIE Infusion Lamotrigine 200 mg 04/07/20 09:00 04/08/20 07:53 Lamotrigine 100 Mg Tablet PO 200 mg DAILY ANGIE Administration Oxycodone HCl 5 mg 04/07/20 11:27 04/08/20 10:27 Oxycodone Hcl Immed Release 5 Mg Tablet PO 5 mg Q4H PRN Administration Pain, Moderate (Pain Scale 4-6 Sodium Chloride 3 ml 04/07/20 08:00 04/08/20 07:54 0.9 % Sodium Chloride Flush 3 Ml Syringe IVFLUSH Not Given QSHIFT [facility] Labs CBC & Chem 7: 04/08/20 07:29 04/08/20 07:35 Microbiology Microbiology Results: Microbiology 04/06/20 21:54 Blood - Venous Blood Culture - Preliminary No growth after 24 hours. 04/06/20 21:43 Blood - Venous Blood Culture - Preliminary No growth after 24 hours. Assessment and Plan (1) Cellulitis of female breast: Status: Acute Assessment and Plan: this is a 49-year-old female who presented to the hospital with complaints of fevers and chills found to be secondary to right breast cellulitis 1. sepsis secondary to right breast cellulitis Sepsis resolved Cultures obtained from outside facility showing MSSA, resistant amp IV clindamycin as recommended by Infectious Disease follow-up blood cultures, negative today Anticipate discharge tomorrow on oral clinda general surgery input appreciated, will arrange for outpatient follow-up for possible biopsy once inflammation improved 2.Elevated blood pressure reports bp has been elevated at various doctors offices last 1 year, spb 150-160 range will start po norvasc - side effects explained norvasc 5mg 3. Mood Lamictal Full code dvt pptx, low risk/early ambulation
[2020-04-08] MEDS: amLODIPine Besylate 5 MG TABLET PO (14:40)
[2020-04-08 15:40] VITALS: BP 151/88; PULSE 79; RESP 18; TEMP 36.4; O2SAT 97
[2020-04-08] MEDS: 0.9 % Sodium Chloride Flush 3 ML SYRINGE IVFLUSH (16:44)
[2020-04-08 23:33] VITALS: BP 146/88; PULSE 73; RESP 16; TEMP 36.2; O2SAT 97
[2020-04-09] MEDS: 0.9 % Sodium Chloride Flush 3 ML SYRINGE IVFLUSH ×2 (00:02→09:31)
[2020-04-09] MEDS: Clindamycin Phosphate/D5W 900 MG/50 ML PIGGYBACK 50 MG IV (00:04)
[2020-04-09] MEDS: oxyCODONE HCl Immed Release 5 MG TABLET PO ×3 (03:35→13:23)
[2020-04-09] MEDS: Acetaminophen 325 MG TABLET 650 MG PO ×2 (03:36→09:30)
[2020-04-09 07:31] VITALS: BP 142/82; PULSE 64; RESP 18; TEMP 36; O2SAT 98
--- NOTE | 2020-04-09 08:54 | MHC.CM.PN ---
dc plan remains the same at this time , for patient to return home no svcs. cm to cont. to follow.
--- NOTE | 2020-04-09 09:15 | P.PNGS_ITS ---
Subjective Subjective Interval history: Megan Luke reports feeling different this morning. She continues to have right breast pain but feels the redness has improved. She is noting some discomfort in the axilla and upper arm. 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) right erythema; no peau d 'orange, no nipple discharge, retraction not noted and no scar Breast/axilla palpation: abnormal palpation of the axilla right tenderness ( no palpable lymphadenopathy, no erythema) and axillary lymphadenopathy not noted Resp: Effort & Inspection: normal respiratory effort Auscultation: clear to auscultation bilaterally Cardio: Rhythm: regular rhythm Heart sounds: S2 normal heart sound present Skin: General skin exam: no rashes or lesions noted and turgor normal Neuro: General: patient oriented x3 and No confusion Extrem: General: Yes normal to inspection, Yes full ROM and Yes no pedal edema Psych: Speech and movement: Normal speech and movement present Affect: normal affect Progress Note: A&P Assessment and plan (1) Cellulitis of female breast: Status: Acute Assessment and Plan: The patient presents with a recent onset of erythema and tenderness of the right breast which initially was resistant to the oral antibiotic. Evaluation ultrasound of the breast revealed dilated lactiferous ducts. Examination revealed no evidence of orange skin change or discrete mass rather there is diffuse thickening of the breast tissue consistent with a mastitis. No areas of fluctuance is appreciated. Today's examination appears improved with decreased redness and decreased inflammation. The patient is aware of some tenderness in the axilla which may be due to reactive lymphadenopathy, although no palpable lymph nodes are noted. Overall the patient seems improved from yesterday. No s urgical intervention recommended at this time. Fall Risk Details Current Medications: Current Medications Generic Name Dose Route Start Last Admin Trade Name Freq PRN Reason Stop Dose Admin Acetaminophen 650 mg 04/07/20 12:18 04/09/20 03:36 Acetaminophen 325 Mg Tablet PO 650 mg Q6H PRN Administration fever, mild pain Amlodipine Besylate 5 mg 04/08/20 14:15 04/08/20 14:40 Amlodipine Besylate 5 Mg Tablet PO 5 mg DAILY ANGIE Administration Protocol Clindamycin Phosphate 900 mg in 50 mls @ 50 mls/hr 04/07/20 16:00 04/09/20 00:40 Cleocin IV Infused Q8H ANGIE Infusion Lamotrigine 200 mg 04/07/20 09:00 04/08/20 07:53 Lamotrigine 100 Mg Tablet PO 200 mg DAILY ANGIE Administration Oxycodone HCl 5 mg 04/07/20 11:27 04/09/20 03:35 Oxycodone Hcl Immed Release 5 Mg Tablet PO 5 mg Q4H PRN Administration Pain, Moderate (Pain Scale 4-6 Sodium Chloride 3 ml 04/07/20 08:00 04/09/20 00:02 0.9 % Sodium Chloride Flush 3 Ml Syringe IVFLUSH 3 ml QSHIFT ANGIE Administration Time Spent With Patient Time: Total time spent is greater than 50% in coordination of care (as documented) at patient's floor/unit and/or counseling patient: Time with patient: 15 - 24 minutes
[2020-04-09 09:31] VITALS: BP 170/107; PULSE 66
[2020-04-09] MEDS: amLODIPine Besylate 5 MG TABLET PO (09:31)
[2020-04-09] MEDS: lamoTRIgine 100 MG TABLET 200 MG PO (09:31)
[2020-04-09 11:12] VITALS: BP 170/93; PULSE 67; RESP 18; TEMP 36.6; O2SAT 97
[2020-04-09 11:38] VITALS: BP 166/90
--- NOTE | 2020-04-09 12:19 | PM.DS ---
DS: Providers Provider Date of admission: 04/07/20 02:28 Primary care physician: None Physician Consults: 04/07/20 03:46 Consult to Physician Routine Consulting Provider: Marilu Lugo Reason for consultation: Sepsis Has provider been notified: No 04/07/20 14:54 Consult to General Surgery Routine Consulting Provider: Esteban Burroughs Reason for consultation: breast cellulitis, further eval for ? inflammatory breast ca??? DS: Diagnosis Discharge Diagnosis (1) Cellulitis of female breast: Status: Acute (2) Sepsis: Status: Acute (3) Depression: Status: Acute (4) Hypertension: Status: Acute DS: Summary Hospital Course Hospital Course: Patient presented with sepsis secondary to a right breast cellulitis. She was ruled out for any abscess with a negative ultrasound. She was initially treated with IV Unasyn). and this was subsequently changed to IV clindamycin once the records were obtained from the outside facility that had cultured her. (Those cultures showed Staph aureus which was resistant to ampicillin but sensitive to clindamycin). she was seen in consultation by both Infectious Disease ( who was in agreement with the antibiotic course) and General surgery ( for both assessment of the need for an I and D as well as outpatient follow-up for biopsy to ensure that this is indeed cellulitis and not inflammatory breast cancer). no surgical intervention was required while in the hospital but she will be following up with the general surgery clinic in about 1 week from discharge. She will be discharged on oral clindamycin to complete a course of antibiotics. Up of note, the patient's blood pressure was elevated in the hospital. She reported that this had been the case at various doctor's visits over the last 1 year, however she has not been initiated on any antihypertensives. She was started on 5 mg of Norvasc which she tolerated and will be discharged home. She needs to obtain a primary care doctor. Time Spent with Patient Time attestation: Total time spent providing and/or coordinating discharge services: Physical Exam Vital Signs: Vital Signs: Vital Signs Temp Pulse Resp BP Pulse Ox 04/09/20 11:38 166/90 H 04/09/20 11:12 97.8 F 67 18 170/93 H 97 04/09/20 09:31 66 170/107 H 04/09/20 07:31 96.8 F 64 18 142/82 H 98 04/08/20 23:33 97.1 F 73 16 146/88 H 97 04/08/20 15:40 97.6 F 79 18 151/88 H 97 Body Mass Index 39.9 General - no acute distress, appears comfortable Cardiovascular - regular rate and rhythm, S1-S2 Lungs - normal respiratory effort, clear to auscultation bilaterally, no wheezing Abdomen - soft, nontender, no rebound regarding Extremities - no edema bilaterally Neuro - awake and alert, no focal deficits Skin -- see below Lymp -- to palpable R axillary lymph nodes Skin: Full body images: 1. erythema, significantly improved DS: Data Data Completed and Pending Labs on day of discharge: Preliminary micro results at discharge 04/06/20 21:54 Blood Culture - Preliminary Blood - Venous No growth after 48 hours. 04/06/20 21:43 Blood Culture - Preliminary Blood - Venous No growth after 48 hours. Discharge Plan Discharge Patient Disposition: Home, Self-Care Referrals: Esteban Burroughs MD [Physician] - 1 Week (You need to follow up in [address] Burroughs) Physician,None [Primary Care Provider] - Discharge Medications: New clindamycin HCl 300 mg Capsule 300 mg PO Q8H Qty: 21 RF: 0 amlodipine 5 mg Tablet 5 mg PO DAILY Qty: 30 RF: 0 oxycodone 5 mg Tablet 5 mg PO Q4H PRN (Reason: Pain, Moderate (Pain Scale 4-6) Qty: 20 RF: 0 Continued Lamictal 200 mg PO DAILY RF: 0 Discharge Orders: Discharge Order (Routine); Ordered 04/09/20 Ordered By: Perico Carvalho Diet: advance to your usual diet Activity on Discharge: As tolerated Visit Report Forms: Patient Portal Discharge page Care Plan Goals: To stay healthy and out of the hospital. Health Concerns: Breast cellulitis. To ensure it resolves. High blood pressure. Plan of Treatment: Finish clindamycin. Follow up with Dr. Burroughs in 1 week. For your blood pressure -- take Amlodipine 5mg. Eat a low salt diet. Obtain a primary care doctor.
== END 2020-04-09 13:55 | disposition home or self-care (01) | DRG 720 ==
LOC: HO.ED 04-07 00:48 → HO.S3 04-07 02:56
PROVIDERS: Admitting Provider Internal Medicine; Emergency Provider Emergency Medicine; Visit Provider Family Medicine
DX: A41.9 Sepsis, unspecified organism (principal); I10 Essential (primary) hypertension; N61.0 Mastitis without abscess; F32.9 Major depressive disorder, single episode, unspecified; B95.61 Methicillin susceptible Staphylococcus aureus infection as the cause of diseases classified elsewhere; Z16.11 Resistance to penicillins; Z79.899 Other long term (current) drug therapy
CPT/HCPCS: 36415; 76641; 80048; 80076; 82040; 82247; 83605; 83690; 84075; 84155; 84450; 84460; 85025; 85610; 85730; 87040; 96361; 96365; 96375; 99285; 99291; J1885; J2405

== ENCOUNTER → 2020-04-17 11:23 | Outpatient (BNVA) | payer BC, SELFPAY | PROVIDERS: PCP Nurse Practitioner Family; Visit Provider Surgery | DX: Z76.89 Persons encountering health services in other specified circumstances (principal) ==

== ENCOUNTER 2020-04-27 10:14 | Outpatient (REF) | payer BC, SELFPAY ==
--- NOTE | 2020-04-27 10:22 | MM_ITS ---
EXAMINATION: MM DIAGNOSTIC DIGITAL BREAST TOMOSYNTHESIS, BILATERAL US DIAGNOSTIC ULTRASOUND BREAST, BILATERAL CLINICAL INFORMATION: 49-year-old with recent right anterior mastitis duct ectasia and staph sepsis. No prior mammography. No family history breast cancer. Patient currently asymptomatic. The lifetime risk of breast cancer based on the Tyrer-Cuzick Model is 14%. COMPARISON: Targeted right breast ultrasound 04/06/2020 TECHNIQUE: Digital breast tomosynthesis is performed in both the craniocaudal and mediolateral oblique views along with computer-aided detection (CAD). Synthesized 2D images are generated from the tomosynthesis. Additional views are obtained: Right cleavage, spot left CC, spot left MLO x2. Ultrasound right breast is targeted to the retroareolar and periareolar breast. Ultrasound left breast is targeted to the 10:00 through 1:00 position. Both breasts are imaged using grayscale imaging and color Doppler without and with harmonics. FINDINGS: There are scattered areas of fibroglandular density (ACR BI-RADS breast composition Category b). The left breast has fine fibronodular parenchymal asymmetry mid 11:00 left breast with mixed fatty tissue likely benign fibroglandular tissue. This is not appreciated on the tomography sections. Neither breast shows significant mass or architectural abnormality. There are no abnormal calcifications. No retroareolar duct ectasia demonstrated. There is no skin thickening or coarsening of the Tremaine's ligaments. Axilla are unremarkable. Ultrasound right breast demonstrates normal appearing small retroareolar ducts. The duct ectasia on prior ultrasound 04/06/2020 has resolved. There is no cystic or solid mass or architectural abnormality. No skin thickening or edema tracking in the soft tissue planes. Ultrasound left breast demonstrates no cystic or solid mass or architectural abnormality. Results are discussed with the patient at time of visit. The right duct ectasia on prior ultrasound is no longer demonstrated. Patient is currently asymptomatic and right may be reassessed again at next bilateral annual mammography, due in 12 months. The left breast parenchymal asymmetry mid 11:00 position appears probably benign and will be reassessed again in 6 months with diagnostic unilateral left mammography. MM/MM tomosynthesis diagnostic BI IMPRESSION: 1. Right: Resolution duct ectasia since prior imaging 04/06/2020. Unremarkable right breast. 2. Left: Probable benign fine fibronodular parenchymal mid 11:00 position. ASSESSMENT: BI-RADS 3: Probably Benign RECOMMENDATION: Diagnostic left mammography in 6 months. This patient's information was entered into a reminder system with a target due date for their next mammogram.
== END 2020-04-27 10:15 | disposition home or self-care (01) ==
LOC: HO.MAMMO 10:14
PROVIDERS: Visit Provider Surgery
DX: N61.0 Mastitis without abscess (principal)
CPT/HCPCS: 76642; 77062; 77066

== ENCOUNTER → 2020-05-04 08:45 | Outpatient (BNVA) | payer BC, SELFPAY | PROVIDERS: Referring Provider Physician Assistant; Visit Provider Surgery | DX: Z76.89 Persons encountering health services in other specified circumstances (principal) ==

== ENCOUNTER 2020-10-26 10:49 | Outpatient (REF) | payer BC, SELFPAY ==
--- NOTE | ~2020-10-26 | MM_ITS ---
EXAMINATION: MM DIAGNOSTIC DIGITAL BREAST TOMOSYNTHESIS, LEFT CLINICAL INFORMATION: Short interval six-month follow-up probable benign fibroglandular asymmetry mid 11:00 left breast noted at initial baseline exam. No known family history breast cancer. The lifetime risk of breast cancer based on the Tyrer-Cuzick Model is 10%. COMPARISON: Mammography: 04/27/2020 (baseline). TECHNIQUE: Digital breast tomosynthesis is performed in both the craniocaudal and mediolateral oblique views along with computer-aided detection (CAD). Synthesized 2D images are generated from the tomosynthesis. Additional left CC view is provided. FINDINGS: There are scattered areas of fibroglandular density (ACR BI-RADS breast composition Category b). The parenchymal asymmetry mid 11:00 left breast is less conspicuous. There is no developing density, mass, architectural abnormality. The remainder of the left breast is unremarkable. Results are discussed with the patient at time of visit. Will reassess left breast again at time of annual bilateral mammography, due in 6 months. MM/MM tomosynthesis diagnostic LT IMPRESSION: The parenchymal asymmetry mid 11:00 left breast is less conspicuous when compared with the baseline exam 04/27/2020. ASSESSMENT: BI-RADS 3: Probably Benign RECOMMENDATION: Diagnostic mammography at time of annual bilateral exam, due in 6 months. This patient's information was entered into a reminder system with a target due date for their next mammogram.
== END 2020-10-26 10:50 | disposition home or self-care (01) ==
LOC: HO.MAMMO 10:49
PROVIDERS: PCP Physician Assistant; Visit Provider Surgery
DX: N61.0 Mastitis without abscess (principal)
CPT/HCPCS: 77061; 77065

== ENCOUNTER 2021-04-22 11:16 | Outpatient (REF) | payer BC, SELFPAY ==
[2021-04-22 12:55] LABS: Hematocrit 42.7 % (37-47); Mean Corpuscular HGB Conc 32.8 g/dl (31.0-35.0); Mean Corpuscular Hemoglobin 33.3 pg (27.0-33.0); Mean Corpuscular Volume 101.4 fL (80-98); Platelet Count 296 X10*3/uL (160-400); Red Blood Count 4.21 X10*6/uL (4.20-5.50); Red Cell Distribution Width 12.7 % (11.0-16.0); White Blood Count 7.9 X10*3/uL (4.8-10.8)
[2021-04-22 13:16] LABS: Creatinine Urine 175.13 mg/dL; Microalbum/Creatinine Ratio Ur 8.5 ug/mg cr
[2021-04-22 13:21] LABS: Alanine Aminotransferase 15 U/L (0-31); Albumin Level 4.1 g/dL (3.5-5.0); Alkaline Phosphatase 58 U/L (39-117); Anion Gap 13 (12-20); Aspartate Amino Transferase 12 U/L (5-31); Bilirubin Total 0.3 mg/dL (0.0-1.0); Blood Urea Nitrogen 20 mg/dL (9-16); Carbon Dioxide 19 mmol/L (22-29); Chloride 112 mmol/L (96-108); Cholesterol 209 mg/dL; Estimated Glomerular Filt Rate > 60; Glucose Fasting 78 mg/dL (60-99); HDL Cholesterol 54 mg/dL; LDL Cholesterol Calculated 144 mg/dl; Potassium 4.6 mmol/L (3.3-5.1); Sodium 139 mmol/L (135-145); Total Protein 6.6 g/dL (6.5-8.0); Triglycerides 58 mg/dL
[2021-04-22 13:23] LABS: Estimated Average Glucose 82 mg/dL; Hemoglobin A1c % 4.5 %
== END 2021-04-22 11:17 | disposition home or self-care (01) ==
LOC: HO.LAB 11:16
PROVIDERS: PCP Physician Assistant; Visit Provider Physician Assistant
DX: I10 Essential (primary) hypertension (principal)
CPT/HCPCS: 36415; 80053; 80061; 82043; 83036; 84443; 85027

== ENCOUNTER 2021-05-03 13:02 | Outpatient (REF) | payer BC, SELFPAY ==
--- NOTE | ~2021-05-03 | MM_ITS ---
EXAMINATION: MM DIAGNOSTIC DIGITAL BREAST TOMOSYNTHESIS, BILATERAL CLINICAL INFORMATION: Screening right breast study with 6 month follow-up left breast study for density. The lifetime risk of breast cancer based on the Tyrer-Cuzick Model is 9.8%. COMPARISON: Mammography: 10/26/2020, 04/27/2020 and 04/06/2020. TECHNIQUE: Digital breast tomosynthesis is performed in both the craniocaudal and mediolateral oblique views along with computer-aided detection (CAD). Synthesized 2D images are generated from the tomosynthesis. FINDINGS: There are scattered areas of fibroglandular density (ACR BI-RADS breast composition Category b). There is a stable parenchymal pattern within the right breast with no new abnormal dominant mass or suspicious grouping of microcalcifications. Within the left breast medially there is again noted to be an ill-defined density without spiculation or calcifications which is somewhat less prominent than on initial study. No new abnormal dominant mass or suspicious grouping of microcalcifications appreciated. Recommend diagnostic bilateral mammogram in 12 months. Results are discussed with the patient at time of visit. MM/MM tomosynthesis diagnostic BI IMPRESSION: There are no significant changes from prior study. ASSESSMENT: BI-RADS 3: Probably Benign RECOMMENDATION: Diagnostic mammography at time of next annual exam, due in 12 months. This patient's information was entered into a reminder system with a target due date for their next mammogram.
== END 2021-05-03 13:03 | disposition home or self-care (01) ==
LOC: HO.MAMMO 13:02
PROVIDERS: Visit Provider Physician Assistant
DX: N64.89 Other specified disorders of breast (principal)
CPT/HCPCS: 77062; 77066

== ENCOUNTER 2022-05-15 08:53 | Outpatient (REF) | payer BC, SELFPAY ==
--- NOTE | ~2022-05-15 | MM_ITS ---
EXAMINATION: MM DIAGNOSTIC DIGITAL BREAST TOMOSYNTHESIS, BILATERAL CLINICAL INFORMATION: Due for yearly. Also follow-up probable benign parenchymal asymmetry mid posterior upper left breast. The lifetime risk of breast cancer based on the Tyrer-Cuzick Model is 11%. COMPARISON: Mammography: 05/03/2021, 10/26/2020, 04/27/2020 (diagnostic, BI-RADS 3); ultrasound breast 04/27/2020. TECHNIQUE: Digital breast tomosynthesis is performed in both the craniocaudal and mediolateral oblique views along with computer-aided detection (CAD). Synthesized 2D images are generated from the tomosynthesis. FINDINGS: There are scattered areas of fibroglandular density (ACR BI-RADS breast composition Category b). Parenchymal pattern is similar to prior studies and there is no developing density or interval mass or architectural abnormality. Minor fibroglandular asymmetry upper left breast is considered to be benign. The axilla are unremarkable. The skin contours are smooth. Results are provided to the patient at time of visit by the technologist. MM/MM tomosynthesis diagnostic BI IMPRESSION: No mammographic evidence of malignancy. ASSESSMENT: BI-RADS 2: Benign RECOMMENDATION: Routine annual mammography screening. This patient's information was entered into a reminder system with a target due date for their next mammogram.
== END 2022-05-15 08:54 | disposition home or self-care (01) ==
LOC: HO.MAMMO 08:53
PROVIDERS: PCP Physician Assistant; Visit Provider Surgery
DX: R92.2 Inconclusive mammogram (principal)
CPT/HCPCS: 77062; 77066

== ENCOUNTER → 2022-07-02 15:43 | Outpatient (BNVA) | payer BC, SELFPAY | PROVIDERS: PCP Physician Assistant; Visit Provider Nurse Practitioner Family | DX: K59.00 Constipation, unspecified (principal) ==

== ENCOUNTER 2022-10-30 09:23 | Outpatient (REF) | payer BC, SELFPAY ==
[2022-10-30 09:51] LABS: Hematocrit 39.3 % (37.0-47.0); Hemoglobin 13.1 g/dl (12.0-16.0); Mean Corpuscular HGB Conc 33.3 g/dl (31.0-35.0); Mean Corpuscular Hemoglobin 33.1 pg (27.0-33.0); Mean Corpuscular Volume 99.2 fL (80.0-98.0); Mean Platelet Volume 9.6 fL (9.4-12.3); Platelet Count 290 X10*3/uL (160-400); Red Blood Count 3.96 X10*6/uL (4.20-5.50); Red Cell Distribution Width 12.9 % (11.0-16.0); White Blood Count 7.4 X10*3/uL (4.8-10.8)
[2022-10-30 10:24] LABS: Alanine Aminotransferase 15 U/L (0-31); Albumin Level 4.1 g/dL (3.5-5.0); Alkaline Phosphatase 52 U/L (39-117); Anion Gap 11 (12-20); Aspartate Amino Transferase 15 U/L (5-31); Bilirubin Total 0.6 mg/dL (0.0-1.0); Blood Urea Nitrogen 22 mg/dL (9-16); Calcium 9.3 mg/dL (8.4-10.2); Carbon Dioxide 20 mmol/L (22-29); Chloride 112 mmol/L (96-108); Cholesterol 210 mg/dL; Estimated Glomerular Filt Rate > 60; Glucose Fasting 93 mg/dL (60-99); HDL Cholesterol 85 mg/dL; LDL Cholesterol Calculated 114 mg/dl; Sodium 139 mmol/L (135-145); Total Protein 6.7 g/dL (6.5-8.0); Triglycerides 59 mg/dL
[2022-10-30 10:39] LABS: TSH reflex Free T4 1.39 uIU/mL (0.32-4.0)
[2022-10-30 11:38] LABS: Creatinine Urine 25.86 mg/dL; Microalbumin Urine < 5.0 mg/L
== END 2022-10-30 09:24 | disposition home or self-care (01) ==
LOC: HO.LAB 09:23
PROVIDERS: PCP Physician Assistant; Visit Provider Physician Assistant
DX: Z13.1 Encounter for screening for diabetes mellitus (principal); Z13.220 Encounter for screening for lipoid disorders; I10 Essential (primary) hypertension
CPT/HCPCS: 36415; 80053; 80061; 82043; 84443; 85027

== ENCOUNTER → 2022-10-31 08:07 | Outpatient (BNVA) | payer BC, SELFPAY | PROVIDERS: PCP Physician Assistant; Visit Provider Nurse Practitioner Family | DX: G43.109 Migraine with aura, not intractable, without status migrainosus (principal) ==

== ENCOUNTER 2023-01-23 13:26 | Day surgery (SDC) | payer BC, SELFPAY ==
[2023-01-21 07:36] VITALS: BMI 30.3
--- NOTE | 2023-01-22 10:32 | HO.ANESPROP2 ---
Documented by User: Teena White NP 01/22/23 10:38 HPI - Anesthesia Eval Consult details Narrative: 52yo F for Colonoscopy PMFSH Active Problems Active Problems: All Active Problems (Updated 10/30/22 @ 09:00 by Joey Jj PA-C) Obese (Acute) Colon cancer screening (Acute) Family history of early (Acute) Screening for hypercholesterolemia (Acute) Screening for diabetes mellitus (DM) (Acute) Chronic migraine without aura (Acute) Fatigue (Acute) Thoracic spine pain (Acute) MDD (major depressive disorder), recurrent episode, moderate (Acute) Annual physical exam (Acute) Migraine (Acute) Hypertension (Acute) H/O staphylococcal septicemia (Acute) Cellulitis of female breast (Acute) Hypertension (Acute) Depression (Acute) Past Medical History Medical History Depression H/O staphylococcal septicemia Hypertension Migraine Family History Family History Father HTN (hypertension) DMII (diabetes mellitus, type 2) Brother Bladder cancer Brother Past heart attack Cardiac abnormality Other Family history non-contributory Surgical History Surgical History H/O tubal ligation History of cholecystectomy Hx of ovarian cystectomy Hx of tonsillectomy Social History Social History Housing: House Alcohol intake: current Alcohol intake frequency: a few times a month Patient Tobacco Use Status: Former Tobacco user Quit Date: 8 yrs ago Tobacco use type: Cigarette e-Cigarette/Vaping Use: Never Used Second Hand Smoke Exposure: No Use of substances other than those prescribed or required for medical reasons: No Are you DNR?: No Advance Directives: No Advance Directives Information Provided: Yes service: No Current occupational status: employed 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[employer] Cognitive needs: No Hearing needs: No Vision needs: No Meds Allergies Allergy/AdvReac Type Severity Reaction Status Date / Time No Known Allergies Allergy Verified 10/31/22 08:19 Home Medications Medication Instructions Recorded Confirmed Last Taken Type lamotrigine 200 mg tablet 200 mg PO BEDTIME 04/17/22 01/21/23 Unknown History fluoxetine 20 mg capsule 20 mg PO DAILY 10/30/22 10/30/22 Unknown History fluoxetine 40 mg capsule 40 mg PO DAILY 10/30/22 10/30/22 Unknown History Exam Exam Date and Time: January 22, 2023 1032 Height,Weight and Vital Signs: Height 5 ft 5 in Weight 82.554 kg Pertinent Lab Results Pertinent Lab Results: Laboratory Tests 10/30/22 10/30/22 09:36 09:36 WBC 7.4 Hgb 13.1 Hct 39.3 Plt Count 290 Sodium 139 Potassium 4.0 Chloride 112 H Carbon Dioxide 20 L BUN 22 H Creatinine 0.85 Assessment and Plan Assessment Anesthesia Assessment: Chart Reviewed Documented by User: Susana Oconnor MD 01/23/23 13:56 PMFSH Past Medical History Medical History Depression H/O staphylococcal septicemia Hypertension Migraine Family History Family History Father HTN (hypertension) DMII (diabetes mellitus, type 2) Brother Bladder cancer Brother Past heart attack Cardiac abnormality Other Family history non-contributory Surgical History Surgical History H/O tubal ligation History of cholecystectomy Hx of ovarian cystectomy Hx of tonsillectomy History of Problems with Anesthesia: No Social History Social History Housing: House Alcohol intake: current Alcohol intake frequency: a few times a month Patient Tobacco Use Status: Former Tobacco user Quit Date: 8 yrs ago Tobacco use type: Cigarette e-Cigarette/Vaping Use: Never Used Second Hand Smoke Exposure: No Use of substances other than those prescribed or required for medical reasons: No Are you DNR?: No Advance Directives: No Advance Directives Information Provided: Yes service: No Current occupational status: employed 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[employer] Cognitive needs: No Hearing needs: No Vision needs: No Meds Allergies Allergy/AdvReac Type Severity Reaction Status Date / Time No Known Allergies Allergy Verified 10/31/22 08:19 Home Medications Medication Instructions Recorded Confirmed Last Taken Type lamotrigine 200 mg tablet 200 mg PO BEDTIME 04/17/22 01/21/23 Unknown History fluoxetine 20 mg capsule 20 mg PO DAILY 10/30/22 10/30/22 Unknown History fluoxetine 40 mg capsule 40 mg PO DAILY 10/30/22 10/30/22 Unknown History Exam Airway Mallampati Class: II TM Dist: >3cm Neck ROM: Full Loose/Missing/Broken Teeth: No Heart: RRR Lungs: CTA Assessment and Plan Assessment Anesthesia Assessment: Anesthesia Plan Discussed Final Anesthetic Review History of Problems with Anesthesia: No NPO: Yes ASA Class: II Final Preanesthetic Review: Meds/Allgs Chart Reviewed, Consent Obtained/Reviewed and Anes Risks/Benef Reviewed Patient Risk: Low Procedure Risk: Low Anesthetic Plan Anesthetic Plan: GA Disposition: Standard PACU
[2023-01-23 13:45] VITALS: BP 147/95; PULSE 73; RESP 15; TEMP 36.5; O2SAT 98
[2023-01-23] MEDS: Lactated Ringers 1,000 ML 100 ML IVCONT (13:58)
--- NOTE | 2023-01-23 14:19 | MHC.SHP ---
Pre-Procedural Eval Section A Date of Service: 01/23/23 The patient is an INPATIENT: No The History & Physical has been completed within 30 days and I have reviewed it.: No Section B Chief Complaint: screening Relevant Family History (Specify if Yes): No Relevant Social History: Tobacco Use (former smoker) Present Medications: see Short Stay Collaborative assessment Medical History: Significant History (Depression H/O staphylococcal septicemia Hypertension) History of Previous Operations: Relevant previous surgery/procedure and date(s) (H/O tubal ligation History of cholecystectomy Hx of tonsillectomy) Allergies: Allergies Allergy/AdvReac Type Severity Reaction Status Date / Time No Known Allergies Allergy Verified 10/31/22 08:19 Review of Systems Sugical H&P ROS: Negative: Constitution, Cardiovascular, Respiratory and Gastrointestinal Exam Surgical H&P Exam: Normal: Heart, Normal: Lungs, Normal: Extremities and Normal: Abdomen Plan Diagnosis/Plan: Unchanged I have reviewed the history and physical and performed a pertinent physical examination on my patient. No changes have occurred unless specified. Time Spent With Patient Time: Total time managing care of this patient today ____ minutes.
--- NOTE | 2023-01-23 14:21 | P.OP_ITS ---
Operative Note Operative Note Date of Service: 01/23/23 Narrative: COLONOSCOPY TILL CECUM Pre-op diagnosis: Colon cancer screening (1st colonoscopy) Post-op diagnosis:? Diverticulosis, hemorrhoids Endoscopist:? Hector Davis MD Anesthesia:?MAC Consent: Indications for the procedure and potential complications of bleeding, perforation, reaction to medications and missed diagnosis were discussed with the patient and informed consent was obtained. Instrument: Olympus PCF H 190 L variable stiffness pediatric colonoscope Monitoring: Vital signs and clinical assessment, intermittent blood pressure monitoring, continuous EKG monitoring, Pulse oximetry and Carbon Dioxide monitoring were done throughout the procedure. Please see anesthesia flowsheet. Colon withdrawl time was 15 minutes. Procedure: The patient was placed in the left lateral decubitis position and pre-procedure medications were administered. After a digital rectal examination of the ano-rectum, the video colonoscope was inserted into the rectum and advanced through the colon to the cecum. The colonoscope was slowly withdrawn in a retrograde panoramic fashion and the colon mucosa was carefully examined including a retroflexed view of the rectum. Findings and interventions are described below. Procedure Difficulty: Colon was long and tortuous and there was some loop formation Findings: Terminal Ileum: Not evaluated Cecum: Normal Ascending Colon: Mild diverticulosis scattered throughout the colon Transverse Colon: Mild diverticulosis scattered throughout the colon Descending Colon: Mild diverticulosis scattered throughout the colon Sigmoid Colon: Moderate diverticulosis Rectum: Normal Ano-rectum: Small internal hemorrhoids Colon preparation: Good after copious irrigation and fair in the right colon with scattered undigested vegetable matter which could not be suctioned Impression and Post Procedure Diagnosis: Colonoscopy Findings: No polyps were detected Moderate diverticulosis seen in the entire colon Small hemorrhoids on retroflexed exam. Plan: Await pathology results Patient has an appointment on 02/11/23 in the [facility] with Zuly Muller FNP- [facility]. Repeat Colonoscopy in 5 years due to fair prep in the right colon. Above findings were reviewed with the patient and diverticulosis handout was given in the discharge area Pt complained of chronic constipation (Takes MOM 1-2 times a month) and advised to take Miralax once a day - prescription sent to patient's preferred pharmacy
[2023-01-23 15:03] VITALS: BP 112/70; PULSE 60; RESP 16; TEMP 36.1; O2SAT 100
[2023-01-23 15:17] VITALS: BP 109/79; PULSE 58; RESP 16; TEMP 36.1; O2SAT 100
== END 2023-01-23 15:33 | disposition home or self-care (01) ==
PROVIDERS: PCP Physician Assistant; Visit Provider Internal Medicine Gastroenterology
PROC: 0DJD8ZZ Inspection of Lower Intestinal Tract, Via Natural or Artificial Opening Endoscopic (ICD-10-PCS; CPT 45378; principal; 2023-01-23 14:40)
DX: Z12.11 Encounter for screening for malignant neoplasm of colon (principal); K57.30 Diverticulosis of large intestine without perforation or abscess without bleeding; K64.8 Other hemorrhoids; K59.09 Other constipation; I10 Essential (primary) hypertension; Z79.899 Other long term (current) drug therapy; Z90.49 Acquired absence of other specified parts of digestive tract; Z87.891 Personal history of nicotine dependence
CPT/HCPCS: 45378

== ENCOUNTER → 2023-01-23 13:26 | Outpatient (BNV) | payer BC, SELFPAY | PROVIDERS: PCP Physician Assistant; Visit Provider Internal Medicine Gastroenterology | DX: Z12.11 Encounter for screening for malignant neoplasm of colon (principal); K57.90 Diverticulosis of intestine, part unspecified, without perforation or abscess without bleeding; K64.8 Other hemorrhoids; K59.04 Chronic idiopathic constipation | CPT/HCPCS: 45378 ==

== ENCOUNTER 2023-05-04 08:00 | Outpatient (AMB) | payer BC, SELFPAY ==
--- NOTE | 2023-05-04 08:10 | MHC.OFFVIS ---
Intake Vital Signs 05/04/23 08:14 Height 5 ft 5 in Weight 156 lb 2 oz BMI 26.0 BP 116/74 Blood Pressure Location Rt brachial Position Sitting Pulse 87 Pulse Source Pulse Oximeter Pulse Oximetry (%) 100 Oxygen Delivery Method Room Air Intake Visit Reasons: 6m follow up migraine /Confirmed Intake Note: Patient presents for 6 month follow up migraine.Patient states There on and off they're controlled but I still get them. Allergies No Known Allergies Allergy (Verified 05/04/23 08:15) Medication List - Last Reconciled 05/04/23 by ASHLEY Huang amlodipine 10 mg PO DAILY 3 months docusate sodium 100 mg PO BEDTIME fluoxetine 20 mg PO DAILY fluoxetine 40 mg PO DAILY hydrocortisone 2.5% (Proctosol HC) 1 appl UT BID-QID PRN lamotrigine 200 mg PO BEDTIME magnesium oxide 400 mg PO BEDTIME 30 days polyethylene glycol 3350 (Miralax) 17 grams PO .Daily 60 days riboflavin (vitamin B2) 400 mg PO DAILY 30 days rizatriptan 5 - 10 mg (0.5 - 1 x 10 mg) PO Q2H PRN 21 days sumatriptan succinate take 1 tab at onset of headache; if no relief, may repeat 1 tab after at least 2 hrs; max = 2 tabs/24 hrs PO 30 days topiramate 200 mg PO BID 90 days HPI HPI Comments History of Present Illness Details 53-yr-old female presents for f/u visit. Pt denies any significant interval medical changes. Pt reports she is having less headaches- now manageable. Over the summer, had a slight uptick in headaches d/t work stress. She can have an annoying headache. She is needing to use her triptan about 4 x's a month. She has been having nocturnal night sweats w/o hot flashes. Notes that her menses are more irrgeuler. She also has been losing train of thought, such as forgetting why she went into a room. Has upcoming [facility] f/u. She already uses 100% cotton bedding. Does take a lot of fluids. Does sleep in a zip up hoodie and yoga pants. PFSH Medical History Migraine Hypertension H/O staphylococcal septicemia Depression Surgical History Hx of ovarian cystectomy History of cholecystectomy Hx of tonsillectomy H/O tubal ligation Family History Father HTN (hypertension) DMII (diabetes mellitus, type 2) Brother Bladder cancer Brother Past heart attack Cardiac abnormality Other Family history non-contributory Social History Housing: House Alcohol intake: current Alcohol intake frequency: a few times a month Patient Tobacco Use Status: Former Tobacco user Quit Date: 8 yrs ago Tobacco use type: Cigarette e-Cigarette/Vaping Use: Never Used Second Hand Smoke Exposure: No service: No Current occupational status: employed 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[employer] Cognitive needs: No Hearing needs: No Vision needs: No Review of Systems Const All systems reviewed & are unremarkable except as noted in HPI and below Physical Exam Vital Signs: Last Vital Signs Pulse 87 05/04/23 08:14 BP 116/74 05/04/23 08:14 Pulse Ox 100 05/04/23 08:14 Oxygen Delivery Method Room Air 05/04/23 08:14 BMI result Body Mass Index 26.0 Const General: cooperative and no acute distress Orientation/consciousness: patient oriented x3 HEENT Head: Yes normocephalic Resp Effort & Inspection: normal respiratory effort and able to speak in complete sentences Neuro General: patient oriented x3, gait normal and CN's II-XI intact bilaterally Cognition (Neuro): normal cognition Motor exam (neuro): 5/5 motor strength present throughout Psych Appearance: grossly normal Mental Status: mental status grossly normal Speech and movement: Normal speech and movement present Affect: normal affect Attitude: cooperative Thought process: Normal thought process present Thought content: Normal thought content present Insight: Good insight present (Psych) Judgement: Good judgement present (Psych) Assessment & Plan Assessment & Plan (1) Chronic migraine without aura: Code(s): G43.709 - Chronic migraine without aura, not intractable, without status migrainosus Qualifiers: Status migrainosus presence: without status migrainosus Intractability: not intractable Qualified Code(s): G43.709 - Chronic migraine without aura, not intractable, without status migrainosus (2) Night sweats: Code(s): R61 - Generalized hyperhidrosis Plan For overall headache management: Continue to optimize good self-care, including but not limited to maintaining a healthy diet, adequate fluid intake, adequate sleep, and engaging in regular physical activity. F/u with [facility]ILY SPECIAL[facility] r/t nocturnal night sweats, change in menses. No current infectious s/s to account for night sweats. Monitoir cognitive s/s- if worsens, consider decreasing Topiramate. ? For acute headache treatment: Sumatriptan 100 mg or rizatriptan 10 mg at onset of migraine. She may continue to use Advil as needed with a goal of using less than 15 days per month. ? For headache prevention medication: Continue riboflavin 400 mg q.a.m. Continue magnesium oxide 400 mg q.h.s.- 3 x's per week as tolerated. Continue topiramate 200 mg b.i.d. Previous: Propranolol- caused weight gain. ? f/u in 6 months or prn Medications: Changed From topiramate increasing dose to 200 BID 200 mg PO BID 90 days 180 tabs 3RF G43.109 - Migraine with aura, not intractable, without status migrainosus To topiramate 200 mg PO BID 90 days 180 tabs 6RF G43.109 - Migraine with aura, not intractable, without status migrainosus Refilled sumatriptan succinate take 1 tab at onset of headache; if no relief, may repeat 1 tab after at least 2 hrs; max = 2 tabs/24 hrs PO 30 days 12 tabs 6RF G43.109 - Migraine with aura, not intractable, without status migrainosus rizatriptan at onset of migraine, may repeat in 2hrs (max 2 tabs per day or 4 tabs per week) 5 - 10 mg (0.5 - 1 x 10 mg) PO Q2H 21 days PRN 12 tabs 3RF migraine headache Coding Level of Care Code Est Pt Level 4 (65433) Diagnoses Chronic migraine without aura without status migrainosus, not intractable G43.709 Status migrainosus presence: without status migrainosus Intractability: not intractable Night sweats R61
[2023-05-04 08:14] VITALS: BP 116/74; PULSE 87; O2SAT 100; BMI 26.0
== END 2023-05-04 08:48 | disposition home or self-care (01) ==
PROVIDERS: Visit Provider Nurse Practitioner Family
DX: G43.709 Chronic migraine without aura, not intractable, without status migrainosus (principal); R61 Generalized hyperhidrosis
CPT/HCPCS: 99214

== ENCOUNTER → 2023-05-04 08:00 | Outpatient (BNVA) | payer BC, SELFPAY | PROVIDERS: Visit Provider Nurse Practitioner Family | DX: G43.109 Migraine with aura, not intractable, without status migrainosus (principal) ==

== ENCOUNTER 2023-05-07 08:01 | Outpatient (AMB) | payer BC, SELFPAY ==
[2023-05-07 08:12] VITALS: BP 132/80; PULSE 94; O2SAT 99; BMI 25.8
--- NOTE | 2023-05-07 08:12 | A.OFFPC_ITS ---
Vital Signs 05/07/23 08:12 Height 5 ft 5 in Weight 155 lb BMI 25.8 BP 132/80 Blood Pressure Location Lt brachial Position Sitting Pulse 94 Pulse Source Pulse Oximeter Pulse Oximetry (%) 99 Oxygen Delivery Method Room Air Intake Visit Reasons: Annual Exam Allergies No Known Allergies Allergy (Verified 05/07/23 08:19) Medication List - Last Reconciled 05/07/23 by Joey Jj PA-C amlodipine 10 mg PO DAILY 3 months docusate sodium 100 mg PO BEDTIME estradiol (Estrace) 0.5 mg PO DAILY fluoxetine 20 mg PO DAILY fluoxetine 40 mg PO DAILY hydrocortisone 2.5% (Proctosol HC) 1 appl [place] BID-QID PRN lamotrigine 200 mg PO BEDTIME magnesium oxide 400 mg PO BEDTIME 30 days polyethylene glycol 3350 (Miralax) 17 grams PO .Daily 60 days riboflavin (vitamin B2) 400 mg PO DAILY 30 days rizatriptan 5 - 10 mg (0.5 - 1 x 10 mg) PO Q2H PRN 21 days sumatriptan succinate take 1 tab at onset of headache; if no relief, may repeat 1 tab after at least 2 hrs; max = 2 tabs/24 hrs PO 30 days topiramate 200 mg PO BID 90 days Tobacco use date assessed: 10/30/22 Dental Screening Dental Screen Date: 05/07/23 Did you have a dental visit in the last 12 months?: Yes Did you have a dental problem in the last 6 months where you did not have access to dental care?: No Was dental information given to patient?: Patient has dentist HPI Annual Exam HPI Details Patient is a 53-year-old female here today for a an annual physical..? Patient has a past medical history significant for chronic migraines, hypertension, depression.. Concern--> reports over last is several months has experiencing which he believes is perimenopause. Has been having menstrual issues, hot flashes, insomnia and mood swings. She recently has been placed on estrogen therapy to help with her symptoms and is hopeful that this will help. She also on meds she has been dependent on nasal can not decongestion and her recently has stopped this medication. She has nasal rebound congestion. Has been using nasal sprays and saline rinses. .. HTN:? Blood pressure today in office acceptable.? She continues on amlodipine 10 mg. .. Migraines:? Currently seen her neurologist and is on medications for her chronic migraines.? Was tried on propanolol for prophylaxis reported bradycardia and fatigue. She believes a lot for migraines are stress induced from work and family. She believes that vitamin B2, rizatriptan and sumatriptan along with Topamax are helpful. .. Depression:? Patient is followed by a therapist and a psychiatrist and continues on Lamictal and fluoxetine with good effect.? .. Mammogram: Has upcoming appointment for mammogram- Colon cancer screening: Colonoscopy done in 2022, repeat 5 years Laboratory Tests 10/30/22 09:36 RBC 3.96 L Hgb 13.1 Creatinine 0.85 Cholesterol 210 LDL Cholesterol, C alc 114 PFSH Medical History (Updated 05/07/23 @ 10:02 by Joey Jj PA-C) Migraine Hypertension H/O staphylococcal septicemia Depression Surgical History Hx of ovarian cystectomy History of cholecystectomy Hx of tonsillectomy H/O tubal ligation Family History Father HTN (hypertension) DMII (diabetes mellitus, type 2) Brother Bladder cancer Brother Past heart attack Cardiac abnormality Other Family history non-contributory Social History (Updated 05/07/23 @ 08:25 by Joey Jj PA-C) Housing: House Alcohol intake: current Alcohol intake frequency: a few times a month Patient Tobacco Use Status: Former Tobacco user Quit Date: 8 yrs ago Tobacco use type: Cigarette e-Cigarette/Vaping Use: Never Used Second Hand Smoke Exposure: No service: No Current occupational status: employed 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 1. Little interest or pleasure in doing things: several days 2. Feeling down, depressed, or hopeless: several days 3. Trouble falling or staying asleep, or sleeping too much: not at all 4. Feeling tired or having little energy: several days 5. Poor appetite or overeating: not at all 6. Feeling bad about yourself - or that you are a failure or have let yourself or your family down: not at all 7. Trouble concentrating on things, such as reading the newspaper or watching television: not at all 8. Moving or speaking so slowly that other people could have noticed. Or the opposite - being so fidgety or restless that you have been moving around a lot more than usual: not at all 9. Thoughts that you would be better off or of hurting yourself in some way: not at all Total score: 3 Depression Screening Interpretation: Positive Depression Screening Follow-up: Existing condition and In treatment Depression Screening Done: Yes 90402 - PHQ-9 Billing: Yes Source: Developed by Drs. Percy Russell, Muriel Francis, Mohamud Evangelista and colleagues, with an educational marianna from [employer]. Thrive Questionnaire Date Thrive assessed: 10/30/22 AUDIT C Alcohol Use Questionnaire (AUDIT-C) 1. How often do you have a drink containing alcohol?: Monthly or less 2. How many drinks containing alcohol do you have on a typical day when you are drinking?: 1 or 2 3. How often do you have six or more drinks on one occasion?: Never Total Score: 1 PALMER-7 AMB Questionnaire PALMER-7 Date PALMER - 7 assessed: 10/30/22 Source: Developed by Drs. Percy Russell, Mohamud Franco and colleagues, with an educational marianna from [employer]. Review of Systems Const Denies body aches, Denies chills, Denies excessive sweating, Denies fatigue, Denies fever(s) and Denies headache(s) Eyes Denies blurry vision ENT Denies dysphagia, Denies vertigo, Denies dizziness, Denies headache(s), Denies hearing loss and Denies tinnitus Card Denies chest pain, Denies chest pain with activity, Denies syncope, Denies irregular heart rhythm and Denies dyspnea Resp Denies chest congestion, Denies cough, Denies hemoptysis, Denies dyspnea and Denies wheezing GI Denies abdominal pain, Denies melena, Denies hematochezia, Denies coffee ground emesis, Denies dysphagia, Denies diarrhea, Denies nausea and Denies vomiting Denies urinary frequency, Denies dysuria, Denies urinary hesitancy and Denies urinary urgency Musc Denies arthralgias, Denies limited range of motion, Denies muscle cramps and Denies muscle weakness Skin/Breast Denies rash and Denies skin ulcer Neuro Denies Abnormal speech present, Denies confusion, Denies vertigo, Denies dizziness, Denies syncope, Denies headache(s), Denies memory loss and Denies seizure-like activity Psych Denies anxiety, Denies confusion, Denies depression, Denies memory loss, Denies panic attacks and Denies paranoia Endo Denies excessive sweating, Denies fatigue, Denies flushing, Denies polydipsia and Denies polyuria Aller/Immun Denies wheezing Physical exam (Primary Care) Vital Signs: Last Vital Signs Pulse 94 05/07/23 08:12 BP 132/80 05/07/23 08:12 Pulse Ox 99 05/07/23 08:12 Oxygen Delivery Method Room Air 05/07/23 08:12 BMI result Body Mass Index 25.8 Tobacco/Smoking Status: Tobacco use Status Tobacco use date assessed 10/30/22 05/07/23 08:17 Patient Tobacco Use Status Former Tobacco user 05/07/23 08:17 Tobacco use type Cigarette 05/07/23 08:17 e-Cigarette/Vaping Use Never Used 05/07/23 08:17 PHQ-9: PHQ-9 Score PHQ-9: Total score 3 05/07/23 08:17 Depression Screening Interpretation: Positive Depression Screening Follow-up: Existing condition and In treatment Thrive Assessment: Date of Thrive Assessment Date Thrive assessed 10/30/22 05/07/23 08:17 Const General: cooperative, comfortable, no acute distress, alert and awake; No confusion Orientation/consciousness: oriented to person, oriented to place, patient oriented x3 and No confusion HENMT Other: NOTABLE NASAL AND SINUS CONGESTION Head: Yes normocephalic Ears: external ears normal and TM's normal bilaterally General nose exam: Nasal discharge present Face and sinus: No sinus tenderness Mouth: Normal oral and palatal mucosa present and tongue normal Teeth and gingiva: dentition normal and gingiva normal Throat: Yes posterior oropharynx normal, Yes tonsils normal and Yes uvula midline Eyes Conjunctivae: conjunctivae normal Sclerae: sclerae normal Pupils: Equal, round and reactive pupils present EOM: EOMs intact bilaterally Direct Ophthalmoscopy: No no photophobia Neck Neck: Yes no lymphadenopathy, No tender and Yes no JVD Thyroid: Thyroid normal Carotids: no bruits Chest Chest palpation & inspection: no tenderness Resp Effort & Inspection: normal respiratory effort, no audible wheezes, not labored and no stridor Auscultation: no crackles, no rales, no rhonchi and no wheezes Cardio Jugular venous distension: no JVD Rate: regular rate, not bradycardic and not tachycardic Rhythm: regular rhythm Bruits: no carotid bruits Peripheral pulses: Peripheral pulses 2+ throughout GI Inspection: Yes normal to inspection, No abdominal wall ecchymosis and No visible herniation Palpation (GI): Soft to palpation, nontender, no guarding, not rigid and No hepatosplenomegaly present Auscultation: normoactive bowel sounds General: Yes no CVA tenderness Back/Spine/Pelvis Back: no CVA tenderness and No back tenderness Cervical Spine: cervical ROM normal Thoracic/Lumbar Spine: thoracic and lumbar spine normal to inspection, straight leg raise negative bilaterally, No thoraco-lumbar ROM limited and No lumbar spinal tenderness Skin Lesions: no lesions Rashes: no rashes Wounds: no wounds Neuro General: oriented to person, oriented to place, patient oriented x3, CN's II-XI intact bilaterally and No confusion Cranial nerves: Yes Equal, round and reactive pupils present and Yes Normal accommodation reflex present Cognition (Neuro): normal cognition Speech: No Abnormal speech present Gait exam (Neuro): Normal gait present Motor exam (neuro): 5/5 motor strength present throughout Extrem Right upper extremity: full ROM; no cyanosis Left upper extremity: full ROM; no cyanosis Right lower extremity: no edema Left lower extremity: no edema Psych Appearance: grossly normal Mental Status: mental status grossly normal Affect: normal affect Attitude: cooperative Thought process: Normal thought process present Assessment and Plan Assessment & Plan (1) Annual physical exam: Code(s): Z00.00 - Encounter for general adult medical examination without abnormal findings (2) Hypertension: Code(s): I10 - Essential (primary) hypertension Qualifiers: Hypertension type: unspecified Qualified Code(s): I10 - Essential (primary) hypertension Plan: Patient's blood pressure acceptable today in office. Will continue current dose of amlodipine with goal blood pressure be below 140/90 (3) Migraine: Code(s): G43.909 - Migraine, unspecified, not intractable, without status migrainosus Qualifiers: Migraine type: with aura Status migrainosus presence: without status migrainosus Intractability: not intractable Qualified Code(s): G43.109 - Migraine with aura, not intractable, without status migrainosus Plan: Patient continues on Neurology, has been on acute treatments over his Triptan and sumatriptan which have been helpful. Was on propanolol though had bradycardia and reports weight gain. Will be following up with Neurology tomorrow. (4) MDD (major depressive disorder), recurrent episode, moderate: Code(s): F33.1 - Major depressive disorder, recurrent, moderate Plan: Patient's PHQ-9 score positive for mild depression which has been an existing condition for her. Patient continues to follow mental health therapist and recently increased her dose of fluoxetine. Feels stable from a mental health standpoint. (5) Chronic rhinitis: Code(s): J31.0 - Chronic rhinitis Plan: As per HPI patient had been addicted to nasal decongestion. She is trying to get off of this and has some rebound nasal congestion. Will supply patient with a prednisone taper to help with nasal inflammation. (6) [place]-menopausal: Code(s): N95.1 - Menopausal and female climacteric states Plan: Patient has been suffering with signs symptoms most consistent with perimenopause only basal motor symptoms. Has been started on estrogen therapy Orders: Orders Comprehensive [place]. Panel Fast 6 Months Z13.1 - Encounter for screening for diabetes mellitus Microalbumin, Random (w Creat) 6 Months I10 - Essential (primary) hypertension Complete Blood Count no Diff 6 Months I10 - Essential (primary) hypertension Medications: New prednisone Take 3 tablets x3 days, 2 tablets x3 days, 1 tablet x3 days 10 mg PO DIRECTED 9 days 18 tabs 0RF J31.0 - Chronic rhinitis Coding Level of Care Code Est Pt Prev Care 40-64y(37403) Diagnoses Annual physical exam Z00.00 Hypertension, unspecified type I10 Hypertension type: unspecified Migraine with aura and without status migrainosus, not intractable G43.109 Migraine type: with aura Status migrainosus presence: without status migrainosus Intractability: not intractable MDD (major depressive disorder), recurrent episode, moderate F33.1 Chronic rhinitis J31.0 [place]a-menopausal N95.1
== END 2023-05-07 08:47 | disposition home or self-care (01) ==
PROVIDERS: Visit Provider Physician Assistant
DX: Z00.00 Encounter for general adult medical examination without abnormal findings (principal); F33.1 Major depressive disorder, recurrent, moderate; I10 Essential (primary) hypertension; G43.109 Migraine with aura, not intractable, without status migrainosus; J31.0 Chronic rhinitis; N95.1 Menopausal and female climacteric states
CPT/HCPCS: 99396

== ENCOUNTER 2023-05-19 09:12 | Outpatient (REF) | payer BC, SELFPAY ==
--- NOTE | ~2023-05-19 | MM_ITS ---
EXAMINATION: MM SCREENING DIGITAL BREAST TOMOSYNTHESIS, BILATERAL CLINICAL INFORMATION: Screening. Asymptomatic. COMPARISON: Mammography: 05/15/2022, 05/03/2021, 10/26/2020, 04/27/2020 (diagnostic, BI-RADS 3); ultrasound breast 04/27/2020. TECHNIQUE: Digital breast tomosynthesis is performed in both the craniocaudal and mediolateral oblique views along with computer-aided detection (CAD). Synthesized 2D images are generated from the tomosynthesis. An additional right MLO was also obtained. FINDINGS: There are scattered areas of fibroglandular density (ACR BI-RADS breast composition Category b). There are no suspicious masses, suspicious grouped calcifications, or areas of architectural distortion in either breast. The parenchymal pattern is stable from prior exams. MM/MM tomosynthesis screening BI IMPRESSION: No mammographic evidence of malignancy. ASSESSMENT: BI-RADS BI-RADS 1 - Negative RECOMMENDATION: Routine annual mammography screening. 1 year F/U This examination should not preclude the clinical evaluation of a suspicious palpable abnormality. This patient's information was entered into a reminder system with a target due date for their next mammogram.
== END 2023-05-19 09:13 | disposition home or self-care (01) ==
LOC: HO.MAMMO 09:12
PROVIDERS: PCP Physician Assistant; Visit Provider Physician Assistant
DX: Z12.31 Encounter for screening mammogram for malignant neoplasm of breast (principal)
CPT/HCPCS: 77063; 77067

== ENCOUNTER → 2023-05-19 09:15 | Outpatient (BNV) | payer BC, SELFPAY | PROVIDERS: PCP Physician Assistant; Visit Provider Radiology Diagnostic Radiology | DX: Z12.31 Encounter for screening mammogram for malignant neoplasm of breast (principal) | CPT/HCPCS: 77063; 77067 ==

== ENCOUNTER 2023-10-20 18:45 | Emergency (ER) | payer BC, SELFPAY ==
--- NOTE | ~2023-10-20 | XR_ITS ---
EXAMINATION: XR LUMBAR SPINE CLINICAL INFORMATION: Reason for Exam back pain COMPARISON: None TECHNIQUE: Frontal lateral and coned-down L5-S1 frontal lateral, total of 3 views FINDINGS: Five [id number] lumbar vertebrae were identified maintaining normal height and alignments. Narrowing of intervertebral disc spaces suggest underlying degenerative disc disease. Paravertebral soft tissues are unremarkable. There are radiolucencies, most likely superimposed bowel gas.. No radiographic evidence of osteolytic or osteoblastic lesions. XR/XR lumbar spine 2-3V IMPRESSION: Degenerative disc disease, no fracture.
--- NOTE | ~2023-10-20 | XR_ITS ---
EXAMINATION: XR HIP, RIGHT CLINICAL INFORMATION: Pain COMPARISON: None available. TECHNIQUE: Two views of the right hip. FINDINGS: No fracture. Alignment is anatomic. Hip joint space is maintained. Soft tissues are unremarkable. XR/XR hip RT w PEL1V IMPRESSION: No significant osseous changes to explain patient's pain symptoms.
[2023-10-20 19:19] VITALS: BP 173/94; PULSE 68; RESP 18; TEMP 36.3; O2SAT 98; BMI 26.3
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
== END 2023-10-20 23:03 | disposition left against medical advice (07) ==
PROVIDERS: Emergency Provider Emergency Medicine; PCP Physician Assistant
DX: Z04.1 Encounter for examination and observation following transport accident (principal); M54.50 Low back pain, unspecified; Z53.21 Procedure and treatment not carried out due to patient leaving prior to being seen by health care provider
CPT/HCPCS: 72100; 73502; 99281; 99283

== ENCOUNTER 2023-11-09 08:46 | Outpatient (AMB) | payer BC, SELFPAY ==
[2023-11-09 08:48] VITALS: BP 128/68; PULSE 72; O2SAT 98; BMI 25.5
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
== END 2023-11-09 09:27 | disposition home or self-care (01) ==
PROVIDERS: PCP Physician Assistant; Visit Provider Physician Assistant
DX: I10 Essential (primary) hypertension (principal); G43.109 Migraine with aura, not intractable, without status migrainosus; N95.1 Menopausal and female climacteric states; F90.0 Attention-deficit hyperactivity disorder, predominantly inattentive type; E78.9 Disorder of lipoprotein metabolism, unspecified; K64.4 Residual hemorrhoidal skin tags
CPT/HCPCS: 99214

== ENCOUNTER 2024-02-01 18:59 | Emergency (ER) | payer BC, SELFPAY ==
[2024-02-01 20:06] VITALS: BP 188/85; PULSE 65; RESP 16; TEMP 36.7; O2SAT 100; BMI 24.6
--- NOTE | 2024-02-01 20:18 | ED_ITS ---
HPI - General Adult General Chief complaint: Skin/Abscess/Foreign Body Stated complaint: cyst on lip Time Seen by Provider: 02/01/24 20:13 Source: patient Mode of arrival: ambulatory Limitations: no limitations History of Present Illness ED Provider: Dg Alexander PA-C HPI narrative: 53 yold female with ADHD, and HTN presents to the ED for Right upper lip cyst with redness, swelling, and tenderness. Patient states present for a couple of days and was much more swollen and with wamr compressed decreased in size and self drainage. presently no drainage from area of redness. patient denies any recent trauma, fever, chiilss, new antibiotics, tongue swelling, drooling, or recent dental work. Related Data Home Medications ?Medication ?Instructions ?Recorded ?Confirmed lamotrigine 200 mg tablet 200 mg PO BEDTIME 04/17/22 11/09/23 fluoxetine 20 mg capsule 20 mg PO DAILY 10/30/22 11/09/23 fluoxetine 40 mg capsule 40 mg PO DAILY 10/30/22 11/09/23 estradiol 0.5 mg tablet (Estrace) 0.5 mg PO DAILY 05/07/23 11/09/23 estradiol-norethindrone acet 1 1 tab PO DAILY 11/09/23 11/09/23 mg-0.5 mg tablet Previous Rx's ?Medication ?Instructions ?Recorded magnesium oxide 400 mg (241.3 mg 400 mg PO BEDTIME 30 days #30 tabs 02/06/22 magnesium) tablet riboflavin (vitamin B2) 400 mg 400 mg PO DAILY 30 days #30 tabs 02/06/22 tablet hydrocortisone 2.5 % topical cream 1 appl [place] BID-QID PRN hemorrhoids 07/02/22 with perineal applicator #30 grams (Proctosol HC) polyethylene glycol 3350 17 17 g PO .Daily 60 days #238 grams 01/23/23 gram/dose oral powder (Miralax) amlodipine 10 mg tablet 10 mg PO DAILY 3 months #90 tabs 03/19/23 rizatriptan 10 mg tablet 5 - 10 mg (0.5 - 1 x 10 mg) PO Q2H 05/04/23 PRN migraine headache 21 days #12 tabs sumatriptan succinate 100 mg tablet See Rx Instructions PO .COMPLEX 30 05/04/23 days #12 tabs topiramate 200 mg tablet 200 mg PO BID 90 days #180 tabs 05/04/23 prednisone 10 mg tablet 10 mg PO DIRECTED 9 days #18 05/07/23 tabs docusate sodium 100 mg capsule 100 mg PO BEDTIME #90 caps 06/16/23 baclofen 10 mg tablet 10 mg PO BID 10 days #20 tabs 10/22/23 hydrochlorothiazide 12.5 mg tablet 12.5 mg PO DAILY 30 days #30 tabs 11/09/23 cephalexin 500 mg capsule 500 mg PO QID 7 days #28 caps 02/01/24 doxycycline hyclate 100 mg capsule 100 mg PO BID 7 days #14 caps 02/01/24 fluconazole 150 mg tablet 150 mg PO Q3D 2 doses #2 tabs 02/01/24 naproxen 500 mg tablet 500 mg PO BID PRN pain 7 days #28 02/01/24 tabs Allergies Allergy/AdvReac Type Severity Reaction Status Date / Time No Known Allergies Allergy Verified 02/01/24 20:14 Review of Systems 2 Review of Systems: right upper lip swelling red cysts Yes all other systems are reviewed and are negative [facility] Past Medical History Medical History (Updated 02/02/24 @ 00:02 by Rolando Deleon) Migraine Hypertension H/O staphylococcal septicemia Depression Surgical History Hx of ovarian cystectomy History of cholecystectomy Hx of tonsillectomy H/O tubal ligation Family History Family History Father HTN (hypertension) DMII (diabetes mellitus, type 2) Brother Bladder cancer Brother Past heart attack Cardiac abnormality Other Family history non-contributory Social History Social History (Updated 05/07/23 @ 08:25 by Joey Jj PA-C) Housing: House Alcohol intake: current Alcohol intake frequency: a few times a month Comment: sleep Patient Tobacco Use Status: Former Tobacco user Tobacco use type: Cigarette e-Cigarette/Vaping Use: Never Used Second Hand Smoke Exposure: No Advance Directives: No Advance Directives Information Provided: No service: No Current occupational status: employed 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[employer] Cognitive needs: No Hearing needs: No Vision needs: No Physical Exam ED Vital Signs: Vital Signs - 24 hr 02/01/24 20:06 02/01/24 20:28 Temperature 98.1 F 98.1 F Pulse Rate 65 65 Respiratory Rate 16 16 Blood Pressure 188/85 H 188/85 H Pulse Oximetry 100 100 Oxygen Delivery Method Room Air Room Air BMI result Body Mass Index 24.6 Const General: cooperative, healthy appearing, comfortable, no acute distress, well developed, alert, awake and Physically active Orientation/consciousness: patient oriented x3 [facility] Head: Yes normal to inspection, Yes No palpable skull fracture present, Yes normocephalic and Yes atraumatic Ears: hearing grossly normal bilaterally, external ears normal, TM's normal bilaterally, TM normal on the right, TM normal on the left, EAC's normal, mastoids normal and no periauricular adenopathy Face images: 2 1. area of redness with opening with dry draiange with surround right upper lip. positive for tendenress. no vesicular elsions. Rest of lip normal. inner oral mucosal is normal. negative for signs for Peritonsillar abscess. Throat: Yes posterior oropharynx normal, Yes tonsils normal and Yes uvula midline Eyes General: appearance normal, both eyes and all related structures Neck Neck: Yes normal visual inspection, Yes full ROM, Yes no lymphadenopathy, Yes no meningeal signs, Yes trachea midline, Yes supple, No anterior neck swelling and No tender Chest Chest palpation & inspection: normal inspection of the chest and normal palpation of entire chest wall Resp Effort & Inspection: normal respiratory effort and able to speak in complete sentences Auscultation: clear to auscultation bilaterally Cardio Jugular venous distension: no JVD Heart sounds: S1 normal heart sound present and S2 normal heart sound present GI Inspection: Yes normal to inspection and No abdominal wall ecchymosis Palpation (GI): Soft to palpation, not firm, nontender, no guarding and not rigid General: Yes no CVA tenderness Back/Spine/Pelvis Back: no CVA tenderness and No back tenderness Skin General skin exam: no rashes or lesions noted, elasticity normal and turgor normal Neuro General: patient oriented x3, gait normal, tone normal, moves all extremities, Normal light touch and pain sensation, no meningeal signs, no focal motor deficits and CN's II-XI intact bilaterally Extrem General: Yes normal to inspection, Yes full ROM and Yes capillary refill normal Psych Appearance: grossly normal, well kempt and not disheveled Medical Decision Making Medical Decision Making [facility] Narrative: 53-year-old female presents to ED for right upper lip cysts with swelling that is red and painful. Patient states it was a small pimple and she scratched it and then it increased in size. Patient then states placed warm compress and improved and there was some drainage. Patient states no neck swelling, drooling, change in voice, fever, chills. HSV swabed ordered. Patient does not believe it is herpes and is delaying treatment. Patient will wait to be called with results. Patient will be treated as cellulitis. Patient is explained worrisome signs and informed to return to the ED immediately. Patient's secondary complaint is vaginal yeast discharge and would like Diflucan. Patient deferred pelvic and UA Differential Diagnosis Differential Diagnoses: The differential diagnosis associated with the presentation includes (Cellulitis, abscess) Admission/Observation Consideration of admission/observation: Escalation of care including admission/observation considered Independent Historian Clinical information obtained from an independent historian. History obtained from or confirmed by: Other (patient) External Record Review External record reviewed: Other (prior visit) Prescription Management I considered prescription management with: Pain Medication and Antibiotic Discharge Plan Discharge Clinical Impression: Cellulitis, Abscess Patient Disposition: Home, Self-Care Instructions: Cellulitis (ED), Abscess (ED), Warm Compress or Soak (ED) Additional Instructions: Presently no indication for incision or drainage. Continue warm compress 4 times a day for 50 minutes on right upper lip. You will be discharged with oral antibiotics. Recommend follow-up with primary care provider. Return to the ED immediately for increased swelling, pain, redness, drooling, change in voice, inability tolerate solid food/liquid, neck swelling, chest pain, shortness of breath, or any other concerning symptoms. Prescriptions: New cephalexin 500 mg capsule 500 mg PO QID 7 Days Qty: 28 0RF doxycycline hyclate 100 mg capsule 100 mg PO BID 7 Days Qty: 14 0RF naproxen 500 mg tablet 500 mg PO BID PRN (Reason: pain) 7 Days Qty: 28 0RF fluconazole 150 mg tablet 150 mg PO Q3D Qty: 2 0RF No Action amlodipine 10 mg tablet 10 mg PO DAILY 90 Days Qty: 90 2RF docusate sodium 100 mg capsule 100 mg PO BEDTIME Qty: 90 0RF baclofen 10 mg tablet 10 mg PO BID 10 Days Qty: 20 0RF polyethylene glycol 3350 [Miralax] 17 gram/dose powder 17 g PO .Daily 60 Days Qty: 238 2RF fluoxetine 20 mg capsule 20 mg PO DAILY fluoxetine 40 mg capsule 40 mg PO DAILY estradiol [Estrace] 0.5 mg tablet 0.5 mg PO DAILY Rx Instructions: off 5 days; repeat cycle prednisone 10 mg tablet 10 mg PO DIRECTED 9 Days Qty: 18 0RF Rx Instructions: Take 3 tablets x3 days, 2 tablets x3 days, 1 tablet x3 days estradiol-norethindrone acet 1-0.5 mg tablet 1 tab PO DAILY hydrochlorothiazide 12.5 mg tablet 12.5 mg PO DAILY 30 Days Qty: 30 3RF magnesium oxide 400 mg (241.3 mg magnesium) tablet 400 mg PO BEDTIME 30 Days Qty: 30 6RF Rx Instructions: may hold for loose stools riboflavin (vitamin B2) 400 mg tablet 400 mg PO DAILY 30 Days Qty: 30 6RF lamotrigine 200 mg tablet 200 mg PO BEDTIME hydrocortisone [Proctosol HC] 2.5 % cream with perineal applicator 1 appl [place] BID-QID PRN (Reason: hemorrhoids) Qty: 30 2RF sumatriptan succinate 100 mg tablet See Rx Instructions PO .COMPLEX 30 Days Qty: 12 6RF Rx Instructions: take 1 tab at onset of headache; if no relief, may repeat 1 tab after at least 2 hrs; max = 2 tabs/24 hrs PO rizatriptan 10 mg tablet 5 - 10 mg PO Q2H PRN (Reason: migraine headache) 21 Days Qty: 12 3RF Rx Instructions: at onset of migraine, may repeat in 2hrs (max 2 tabs per day or 4 tabs per week) topiramate 200 mg tablet 200 mg PO BID 90 Days Qty: 180 6RF Stand Alone Forms: Work/School Release Interventions: ED Discharge Assessment Last Done: 02/01/24 20:28 Discharge Date/Time: 02/01/24 20:30 Print Language: Greek
[2024-02-01 20:28] VITALS: BP 188/85; PULSE 65; RESP 16; TEMP 36.7; O2SAT 100
== END 2024-02-01 20:30 | disposition home or self-care (01) ==
PROVIDERS: Physician Assistant; Emergency Provider Student in an Organized Health Care Education/Training Program; PCP Physician Assistant
DX: K13.0 Diseases of lips (principal); B37.31 Acute candidiasis of vulva and vagina; Z79.899 Other long term (current) drug therapy; Z87.891 Personal history of nicotine dependence
CPT/HCPCS: 87255; 99282; 99283

== ENCOUNTER 2024-05-05 08:14 | Outpatient (AMB) | payer BC, SELFPAY ==
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
[2024-05-05 08:19] VITALS: BP 170/100; PULSE 71; O2SAT 100; BMI 26.3
== END 2024-05-05 09:07 | disposition home or self-care (01) ==
LOC: HO.HSMS 08:15
PROVIDERS: PCP Physician Assistant; Visit Provider Nurse Practitioner Family
DX: G43.709 Chronic migraine without aura, not intractable, without status migrainosus (principal); I10 Essential (primary) hypertension
CPT/HCPCS: 99214

== ENCOUNTER 2024-05-11 08:44 | Outpatient (AMB) | payer BC, SELFPAY ==
[2024-05-11 09:02] VITALS: BP 128/78; PULSE 68; O2SAT 98; BMI 25.5
--- NOTE | 2024-05-11 09:02 | MHC.PC.OV ---
Vital Signs 05/11/24 09:02 Height 5 ft 5 in Weight 153 lb 2 oz BMI 25.5 BP 128/78 Blood Pressure Location Lt brachial Position Sitting Pulse 68 Pulse Source Pulse Oximeter Pulse Oximetry (%) 98 Oxygen Delivery Method Room Air Intake Visit Reasons: Annual Exam Intake Note: Patient is here today for a physical. 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 Required: No Accompanied by: Self / Same As Patient Allergies No Known Allergies Allergy (Verified 05/11/24 09:19) Medication List - Last Reconciled 05/11/24 by Joey Jj PA-C amlodipine 10 mg PO DAILY 3 months baclofen 10 mg PO BID 10 days dextroamphetamine-amphetamine 30 mg (Adderall) 30 mg PO DAILY docusate sodium 100 mg PO BEDTIME estradiol (Estrace) 0.5 mg PO DAILY estradiol-norethindrone acet 1-0.5 mg 1 tab PO DAILY fluoxetine 20 mg PO DAILY fluoxetine 40 mg PO DAILY hydrochlorothiazide 12.5 mg PO DAILY 30 days hydrocortisone 2.5% (Proctosol HC) 1 appl [place] BID-QID PRN lamotrigine 200 mg PO BEDTIME magnesium oxide 400 mg PO BEDTIME 30 days naproxen 500 mg PO BID PRN 7 days polyethylene glycol 3350 (Miralax) 17 grams PO .Daily 60 days riboflavin (vitamin B2) 400 mg PO DAILY 30 days rizatriptan 5 - 10 mg (0.5 - 1 x 10 mg) PO Q2H PRN 21 days sumatriptan succinate take 1 tab at onset of headache; if no relief, may repeat 1 tab after at least 2 hrs; max = 2 tabs/24 hrs PO 30 days topiramate 200 mg PO BID 90 days topiramate 200 mg PO BID 90 days Tobacco use date assessed: 05/11/24 Dental Screening Dental Screen Date: 05/11/24 Did you have a dental visit in the last 12 months?: Yes Did you have a dental problem in the last 6 months where you did not have access to dental care?: No Was dental information given to patient?: Patient has dentist HPI Annual Exam HPI Details Patient is a 53-year-old female here today for a follow-up visit..? Patient has a past medical history significant for chronic migraines, hypertension, ADHD, depression.. . ADHD: She has been restarted on Adderall for her ADHD symptoms by her psychiatrist and better control of her inattentiveness and better sleep. .. HTN:? Blood pressure today in office acceptable. She has restarted her blood pressure medication more consistently and blood pressures have been much better. She reports being stressed as of late due to work issues and uncontrolled ADHD. .. Migraines:? Currently seen her neurologist and is on medications for her chronic migraines.? Was tried on propanolol for prophylaxis reported bradycardia and fatigue. She believes a lot for migraines are stress induced from work and family. She believes that vitamin B2, rizatriptan and sumatriptan along with Topamax are helpful. .. Depression:? Patient is followed by a therapist and a psychiatrist and continues on Lamictal and fluoxetine with good effect.? 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 vaccine: Up-to-date with COVID vaccine, tetanus vaccine, needs flu vaccine and considering shingles vaccine Laboratory Tests 04/22/21 10/30/22 11:40 09:36 RBC 3.96 L MCV 101.4 H 99.2 H Creatinine 0.85 Cholesterol 209 210 LDL Cholesterol, C alc 144 114 TSH 1.39 Urine Microalbumin < 5.0 PFSH Medical History (Updated 05/12/24 @ 08:43 by Joey Jj PA-C) Chronic rhinitis Migraine Hypertension H/O staphylococcal septicemia Surgical History Hx of ovarian cystectomy History of cholecystectomy Hx of tonsillectomy H/O tubal ligation Family History (Updated 05/11/24 @ 09:16 by Joey Jj PA-C) Father HTN (hypertension) DMII (diabetes mellitus, type 2) Brother Bladder cancer Brother Past heart attack Cardiac abnormality Sister DVT (deep venous thrombosis) Other Family history non-contributory Social History (Updated 05/11/24 @ 09:17 by Joey Jj PA-C) Housing: House Alcohol intake: current Alcohol intake frequency: a few times a month Comment: sleep Patient Tobacco Use Status: Former Tobacco user Tobacco use type: Cigarette e-Cigarette/Vaping Use: Never Used Second Hand Smoke Exposure: No service: No Current occupational status: employed 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 1. Little interest or pleasure in doing things: not at all 2. Feeling down, depressed, or hopeless: not at all 3. Trouble falling or staying asleep, or sleeping too much: not at all 4. Feeling tired or having little energy: not at all 5. Poor appetite or overeating: not at all 6. Feeling bad about yourself - or that you are a failure or have let yourself or your family down: not at all 7. Trouble concentrating on things, such as reading the newspaper or watching television: not at all 8. Moving or speaking so slowly that other people could have noticed. Or the opposite - being so fidgety or restless that you have been moving around a lot more than usual: not at all 9. Thoughts that you would be better off or of hurting yourself in some way: not at all Total score: 0 Depression Screening Interpretation: Positive Depression Screening Follow-up: Existing condition and In treatment Depression Screening Done: Yes 93366 - PHQ-9 Billing: Yes Source: Developed by Drs. Percy Russell, Muriel Francis, Mohamud Evangelista and colleagues, with an educational marianna from [employer]. Thrive Questionnaire Date Thrive assessed: 05/11/24 I am a: Patient What is your living situation today?: I have a steady place to live Within the past 12 months, did the food you bought not last and you didn't have the money to get more?: Never true Within the past 12 months, did you worry whether your food would run out before you got money to buy more?: Never true Do you have trouble paying for medicines?: No Do you have trouble getting transportation to medical appointments?: No Do you have trouble paying your heating and electricity bill?: No Do you have trouble taking care of your child, family member or friend?: No Do you have trouble with day-to-day activities such as bathing, preparing meals, shopping, managing finances, etc.?: No Are you currently unemployed and looking for a job?: No Are you interested in more education?: No Please select the resources that you would like help with: None Currently or been in a relationship where the following occur: No concerns reported THRIVE Score: 0 AUDIT C Alcohol Use Questionnaire (AUDIT-C) 1. How often do you have a drink containing alcohol?: Monthly or less 2. How many drinks containing alcohol do you have on a typical day when you are drinking?: 1 or 2 3. How often do you have six or more drinks on one occasion?: Never Total Score: 1 PALMER-7 AMB Questionnaire PALMER-7 Date PALMER - 7 assessed: 05/11/24 Feeling nervous, anxious, or on edge: 0 = Not at all Not being able to stop or control worryin = Not at all Worrying too much about different things: 0 = Not at all Trouble relaxin = Not at all Being so restless that it is hard to sit still: 0 = Not at all Becoming easily annoyed or irritable: 0 = Not at all Feeling afraid as if something awful might happen: 0 = Not at all Total PALMER-7 score (0-4 normal; 5-9 mild; 10-14 moderate; 15-21 severe): 0 Source: Developed by Drs. Percy Russell, Muriel Francis, Mohamud Evangelista and colleagues, with an educational marianna from [employer]. PALMER-7 Assessment Billing PALMER-7 Assessment Tool: PALMER-7 Assessment 83071 Review of Systems Const Denies body aches, Denies chills, Denies excessive sweating, Denies fatigue, Denies fever(s) and Denies headache(s) Eyes Denies blurry vision ENT Denies dysphagia, Denies vertigo, Denies dizziness, Denies headache(s), Denies hearing loss and Denies tinnitus Card Denies chest pain, Denies chest pain with activity, Denies syncope, Denies irregular heart rhythm and Denies dyspnea Resp Denies chest congestion, Denies cough, Denies hemoptysis, Denies dyspnea and Denies wheezing GI Denies abdominal pain, Denies melena, Denies hematochezia, Denies coffee ground emesis, Denies dysphagia, Denies diarrhea, Denies nausea and Denies vomiting Denies urinary frequency, Denies dysuria, Denies urinary hesitancy and Denies urinary urgency Musc Denies arthralgias, Denies limited range of motion, Denies muscle cramps and Denies muscle weakness Skin/Breast Denies rash and Denies skin ulcer Neuro Denies Abnormal speech present, Denies confusion, Denies vertigo, Denies dizziness, Denies syncope, Denies headache(s), Denies memory loss and Denies seizure-like activity Psych Denies anxiety, Denies confusion, Denies depression, Denies memory loss, Denies panic attacks and Denies paranoia Endo Denies excessive sweating, Denies fatigue, Denies flushing, Denies polydipsia and Denies polyuria Aller/Immun Denies wheezing Physical exam (Primary Care) Vital Signs: Last Vital Signs Pulse 68 05/11/24 09:02 BP 128/78 05/11/24 09:02 Pulse Ox 98 05/11/24 09:02 Oxygen Delivery Method Room Air 05/11/24 09:02 BMI result Body Mass Index 25.5 Tobacco/Smoking Status: Tobacco use Status Tobacco use date assessed 05/11/24 05/11/24 09:14 Patient Tobacco Use Status Former Tobacco user 05/11/24 09:17 Tobacco use type Cigarette 05/11/24 09:17 e-Cigarette/Vaping Use Never Used 05/11/24 09:17 PHQ-9: PHQ-9 Score PHQ-9: Total score 0 05/11/24 09:11 Depression Screening Interpretation: Positive Depression Screening Follow-up: Existing condition and In treatment Thrive Assessment: Date of Thrive Assessment Date Thrive assessed 05/11/24 05/11/24 09:14 Currently or been in a relationship where the following occur: No concerns reported Const General: cooperative, comfortable, no acute distress, alert and awake; No confusion Orientation/consciousness: oriented to person, oriented to place, patient oriented x3 and No confusion HENMT Head: Yes normocephalic Ears: external ears normal and TM's normal bilaterally Face and sinus: No sinus tenderness Mouth: Normal oral and palatal mucosa present and tongue normal Teeth and gingiva: dentition normal and gingiva normal Throat: Yes posterior oropharynx normal, Yes tonsils normal and Yes uvula midline Eyes Conjunctivae: conjunctivae normal Sclerae: sclerae normal Pupils: Equal, round and reactive pupils present EOM: EOMs intact bilaterally Direct Ophthalmoscopy: No no photophobia Neck Neck: Yes no lymphadenopathy, No tender and Yes no JVD Thyroid: Thyroid normal Carotids: no bruits Chest Chest palpation & inspection: no tenderness Resp Effort & Inspection: normal respiratory effort, no audible wheezes, not labored and no stridor Auscultation: no crackles, no rales, no rhonchi and no wheezes Cardio Jugular venous distension: no JVD Rate: regular rate, not bradycardic and not tachycardic Rhythm: regular rhythm Bruits: no carotid bruits Peripheral pulses: Peripheral pulses 2+ throughout GI Inspection: Yes normal to inspection, No abdominal wall ecchymosis and No visible herniation Palpation (GI): Soft to palpation, nontender, no guarding, not rigid and No hepatosplenomegaly present Auscultation: normoactive bowel sounds General: Yes no CVA tenderness Back/Spine/Pelvis Back: no CVA tenderness and No back tenderness Cervical Spine: cervical ROM normal Thoracic/Lumbar Spine: thoracic and lumbar spine normal to inspection, straight leg raise negative bilaterally, No thoraco-lumbar ROM limited and No lumbar spinal tenderness Skin Lesions: no lesions Rashes: no rashes Wounds: no wounds Neuro General: oriented to person, oriented to place, patient oriented x3, CN's II-XI intact bilaterally and No confusion Cranial nerves: Yes Equal, round and reactive pupils present and Yes Normal accommodation reflex present Cognition (Neuro): normal cognition Speech: No Abnormal speech present Gait exam (Neuro): Normal gait present Motor exam (neuro): 5/5 motor strength present throughout Extrem Right upper extremity: full ROM; no cyanosis Left upper extremity: full ROM; no cyanosis Right lower extremity: no edema Left lower extremity: no edema Psych Appearance: grossly normal Mental Status: mental status grossly normal Affect: normal affect Attitude: cooperative Thought process: Normal thought process present Coding Level of Care Code Est Pt Prev Care 40-64y(01518) Diagnoses Annual physical exam Z00.00 Hypertension, unspecified type I10 Hypertension type: unspecified MDD (major depressive disorder), recurrent episode, moderate F33.1 Borderline high cholesterol E78.9 Attention deficit hyperactivity disorder (ADHD), predominantly inattentive type F90.0 Attention deficit-hyperactivity disorder type: predominantly inattentive Additional Codes PALMER-7 Assessment Billing - PALMER-7 Assessment Tool: PALMER-7 Assessment [id number] ([id number]) PHQ-9 - 26136 - PHQ-9 Billing: Yes ([id number]) Assessment & Plan Assessment & Plan (1) Annual physical exam: Code(s): Z00.00 - Encounter for general adult medical examination without abnormal findings Category: Medical Plan: as per hpi (2) Hypertension: Code(s): I10 - Essential (primary) hypertension Category: Medical Qualifiers: Hypertension type: unspecified Qualified Code(s): I10 - Essential (primary) hypertension Plan: Patient's blood pressure acceptable today in office. She will continue on hydrochlorothiazide and amlodipine 10 mg . Goal blood pressure to be below 140/90 (3) MDD (major depressive disorder), recurrent episode, moderate: Code(s): F33.1 - Major depressive disorder, recurrent, moderate Category: Medical Plan: Patient's depression has been fairly well controlled with current medication. She is speaking with a mental health therapist and psychiatrist regularly. (4) Borderline high cholesterol: Code(s): E78.9 - Disorder of lipoprotein metabolism, unspecified Category: Medical Plan: Patient's most recent lipid panel showing borderline high total cholesterol. She will continue working on lifestyle and dietary modifications to reduce her cholesterol. (5) ADHD: Code(s): F90.9 - Attention-deficit hyperactivity disorder, unspecified type Category: Medical Qualifiers: Attention deficit-hyperactivity disorder type: predominantly inattentive Qualified Code(s): F90.0 - Attention-deficit hyperactivity disorder, predominantly inattentive type Plan: As per HPI patient is ADHD is now being treated by her psychiatrist. She has started back on Adderall feels that her ineffectiveness has been much better. She is actually getting better sleep as of late. Orders: Orders Complete Blood Count no Diff 05/11/24 I10 - Essential (primary) hypertension Microalbumin, Random (w Creat) 05/11/24 I10 - Essential (primary) hypertension Lipid Panel 05/11/24 E78.9 - Disorder of lipoprotein metabolism, unspecified Comprehensive [place]. Panel Fast 05/11/24 I10 - Essential (primary) hypertension Medications: Refilled naproxen 500 mg PO BID PRN 28 tabs 0RF pain 7 days I10 - Essential (primary) hypertension baclofen 10 mg PO BID 20 tabs 0RF 10 days M54.6 - Pain in thoracic spine topiramate 200 mg PO BID 180 tabs 3RF 90 days G43.109 - Migraine with aura, not intractable, without status migrainosus Patient Instructions: Goal: Blood pressure to remain below 140/90 Barriers: Adherence to physical activity and healthy eating habits
== END 2024-05-11 09:32 | disposition home or self-care (01) ==
PROVIDERS: PCP Physician Assistant; Visit Provider Physician Assistant
DX: Z00.00 Encounter for general adult medical examination without abnormal findings (principal); I10 Essential (primary) hypertension; F33.1 Major depressive disorder, recurrent, moderate; E78.9 Disorder of lipoprotein metabolism, unspecified; F90.0 Attention-deficit hyperactivity disorder, predominantly inattentive type

== ENCOUNTER → 2024-05-11 08:44 | Outpatient (BNVA) | payer BC, SELFPAY | PROVIDERS: PCP Physician Assistant; Visit Provider Physician Assistant | DX: Z00.00 Encounter for general adult medical examination without abnormal findings (principal); I10 Essential (primary) hypertension; F33.1 Major depressive disorder, recurrent, moderate; E78.9 Disorder of lipoprotein metabolism, unspecified; F90.0 Attention-deficit hyperactivity disorder, predominantly inattentive type; Z79.899 Other long term (current) drug therapy | CPT/HCPCS: 96127 ==

== ENCOUNTER 2024-11-08 08:35 | Outpatient (AMB) | payer BC, SELFPAY ==
[2024-11-08 08:38] VITALS: BP 152/98; PULSE 89; RESP 20; TEMP 36.3; O2SAT 99; BMI 28.1
--- NOTE | 2024-11-08 08:38 | A.OFFPC_ITS ---
Vital Signs 11/08/24 08:38 11/08/24 09:03 Height 5 ft 5 in Weight 168 lb 9.6 oz BMI 28.1 BP 152/98 H 140/90 H Blood Pressure Location Lt brachial Position Sitting Respiration 20 Pulse 89 Pulse Source Pulse Oximeter Temp 97.3 F Temp Source Temporal Artery Scan Pulse Oximetry (%) 99 Oxygen Delivery Method Room Air Intake Visit Reasons: Follow up hypertension Willower Required: No Accompanied by: Self / Same As Patient Allergies No Known Allergies Allergy (Verified 11/08/24 08:54) Medication List - Last Reconciled 11/08/24 by Joey Jj PA-C amlodipine 10 mg PO DAILY 3 months baclofen 10 mg PO BID 10 days dextroamphetamine-amphetamine 20 mg PO dextroamphetamine-amphetamine 30 mg (Adderall) 30 mg PO DAILY docusate sodium 100 mg PO BEDTIME estradiol (Estrace) 0.5 mg PO DAILY estradiol-norethindrone acet 1-0.5 mg 1 tab PO DAILY fluoxetine 20 mg PO DAILY fluoxetine 40 mg PO DAILY hydrochlorothiazide 12.5 mg PO DAILY 30 days lamotrigine 200 mg PO BEDTIME magnesium oxide 400 mg PO BEDTIME 30 days riboflavin (vitamin B2) 400 mg PO DAILY 30 days rizatriptan 5 - 10 mg (0.5 - 1 x 10 mg) PO Q2H PRN 21 days sumatriptan succinate take 1 tab at onset of headache; if no relief, may repeat 1 tab after at least 2 hrs; max = 2 tabs/24 hrs PO 30 days topiramate 200 mg PO BID 90 days Tobacco use date assessed: 11/08/24 Dental Screening Dental Screen Date: 11/08/24 Did you have a dental visit in the last 12 months?: Yes Did you have a dental problem in the last 6 months where you did not have access to dental care?: No Was dental information given to patient?: Patient has dentist HPI Follow up hypertension HPI Details Patient is a 54-year-old female here today for a follow-up visit..? Jose Antonio maynard has a past medical history significant for chronic migraines, hypertension, ADHD, depression.. . ADHD: She has been restarted on Adderall for her ADHD symptoms by her psychiatrist and better control of her inattentiveness and better sleep. She reports recently being out of Adderall in his awaiting refill. She has been having increase inattentiveness and anxiousness. .. HTN:? Blood pressure today in office elevated. She is fairly adherent to her blood pressure medication. She reports being stressed as of late due to work issues and uncontrolled ADHD. PLAN: Will consider increasing hydrochlorothiazide dose to 25 mg daily for better blood pressure control .. Migraines:? Currently seen her neurologist and is on medications for her chronic migraines.? Was tried on propanolol for prophylaxis reported bradycardia and fatigue. She believes a lot for migraines are stress induced from work and family. She believes that vitamin B2, rizatriptan and sumatriptan along with Topamax are helpful. .. Depression:? Patient is followed by a therapist and a psychiatrist and continues on Lamictal and fluoxetine with good effect.? PFSH Medical History Chronic rhinitis Migraine Hypertension H/O staphylococcal septicemia Surgical History Hx of ovarian cystectomy History of cholecystectomy Hx of tonsillectomy H/O tubal ligation Family History Father HTN (hypertension) DMII (diabetes mellitus, type 2) Brother Bladder cancer Brother Past heart attack Cardiac abnormality Sister DVT (deep venous thrombosis) Other Family history non-contributory Social History Housing: House Alcohol intake: current Alcohol intake frequency: a few times a month Comment: sleep Patient Tobacco Use Status: Former Tobacco user Tobacco use type: Cigarette e-Cigarette/Vaping Use: Never Used Second Hand Smoke Exposure: No service: No Current occupational status: employed 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 1. Little interest or pleasure in doing things: more than half the days 2. Feeling down, depressed, or hopeless: several days 3. Trouble falling or staying asleep, or sleeping too much: several days 4. Feeling tired or having little energy: several days 5. Poor appetite or overeating: more than half the days 6. Feeling bad about yourself - or that you are a failure or have let yourself or your family down: more than half the days 7. Trouble concentrating on things, such as reading the newspaper or watching television: more than half the days 8. Moving or speaking so slowly that other people could have noticed. Or the opposite - being so fidgety or restless that you have been moving around a lot more than usual: more than half the days 9. Thoughts that you would be better off or of hurting yourself in some w ay: not at all Total score: 13 Depression Screening Interpretation: Positive Depression Screening Follow-up: Existing condition and In treatment Depression Screening Done: Yes 97896 - PHQ-9 Billing: Yes Source: Developed by Drs. Percy Russell, Muriel Francis, Mohamud Evangelista and colleagues, with an educational marianna from [employer]. Thrive Questionnaire Date Thrive assessed: 11/08/24 I am a: Patient What is your living situation today?: I have a steady place to live Within the past 12 months, did the food you bought not last and you didn't have the money to get more?: Never true Within the past 12 months, did you worry whether your food would run out before you got money to buy more?: Never true Do you have trouble paying for medicines?: No Do you have trouble getting transportation to medical appointments?: No Do you have trouble paying your heating and electricity bill?: No Do you have trouble taking care of your child, family member or friend?: No Do you have trouble with day-to-day activities such as bathing, preparing meals, shopping, managing finances, etc.?: No Are you currently unemployed and looking for a job?: Yes Are you interested in more education?: Yes Please select the resources that you would like help with: None Currently or been in a relationship where the following occur: No concerns reported THRIVE Score: 0 AUDIT C Alcohol Use Questionnaire (AUDIT-C) 1. How often do you have a drink containing alcohol?: Monthly or less 2. How many drinks containing alcohol do you have on a typical day when you are drinking?: 1 or 2 3. How often do you have six or more drinks on one occasion?: Less than monthly Total Score: 2 Score Reviewed/Action Taken: No PALMER-7 AMB Questionnaire PALMER-7 Date PALMER - 7 assessed: 11/08/24 Feeling nervous, anxious, or on edge: 2 = More than half the days Not being able to stop or control worryin = Several days Worrying too much about different things: 1 = Several days Trouble relaxin = Several days Being so restless that it is hard to sit still: 1 = Several days Becoming easily annoyed or irritable: 1 = Several days Feeling afraid as if something awful might happen: 0 = Not at all Total PALMER-7 score (0-4 normal; 5-9 mild; 10-14 moderate; 15-21 severe): 7 Source: Developed by Drs. Percy Russell, Muriel Francis, Mohamud Evangelista and colleagues, with an educational marianna from [employer]. PALMER-7 Assessment Billing PALMER-7 Assessment Tool: PALMER-7 Assessment 06537 Review of Systems Const Denies headache(s) Eyes Denies loss of vision ENT Denies vertigo, Denies dizziness, Denies headache(s) and Denies sore throat Card Denies chest pain, Denies leg edema and Denies lightheadedness Resp Denies cough, Denies hemoptysis and Denies wheezing GI Denies abdominal pain, Denies melena, Denies constipation, Denies diarrhea and Denies vomiting Denies urinary frequency, Denies dysuria and Denies urinary urgency Musc Denies arthralgias, Denies joint swelling, Denies numbness and Denies tingling Neuro Denies Abnormal speech present, Denies behavioral changes, Denies vertigo, Denies dizziness, Denies headache(s), Denies loss of vision, Denies memory loss, Denies numbness and Denies tingling Psych Denies anxiety, Denies behavioral changes, Denies depression, Denies memory loss and Denies panic attacks Jarod/Lymph Denies easy bleeding and Denies easy bruising Aller/Immun Denies wheezing Physical exam (Primary Care) Vital Signs: Last Vital Signs Temp 97.3 F 11/08/24 08:38 Pulse 89 11/08/24 08:38 Resp 20 11/08/24 08:38 BP 140/90 H 11/08/24 09:03 Pulse Ox 99 11/08/24 08:38 Oxygen Delivery Method Room Air 11/08/24 08:38 BMI result Body Mass Index 28.1 Tobacco/Smoking Status: Tobacco use Status Tobacco use date assessed 11/08/24 11/08/24 08:47 Patient Tobacco Use Status Former Tobacco user 11/08/24 08:47 Tobacco use type Cigarette 11/08/24 08:47 e-Cigarette/Vaping Use Never Used 11/08/24 08:47 PHQ-9: PHQ-9 Score PHQ-9: Total score 11/08/24 08:55 Depression Screening Interpretation: Positive Depression Screening Follow-up: Existing condition and In treatment Thrive Assessment: Date of Thrive Assessment Date Thrive assessed 11/08/24 11/08/24 08:47 Currently or been in a relationship where the following occur: No concerns reported Const General: healthy appearing, no acute distress, alert and awake Nutritional Appearance: well nourished Orientation/consciousness: oriented to person, oriented to place and oriented to time HENMT Ears: TM's normal bilaterally General nose exam: Normal nasal mucous membranes and turbinates present Eyes Conjunctivae: conjunctivae normal Sclerae: sclerae normal Pupils: Equal, round and reactive pupils present Neck Neck: Yes no lymphadenopathy and Yes no JVD Thyroid: Thyroid normal Carotids: no bruits Resp Effort & Inspection: normal respiratory effort and not tachypneic Auscultation: no crackles, no rales, no rhonchi and no wheezes Cardio Rate: regular rate Rhythm: regular rhythm Heart sounds: no murmurs and normal S1 and S2 GI Palpation (GI): Soft to palpation, nontender, no hepatomegaly and no splenomegaly Auscultation: normal bowel sounds Skin General skin exam: no rashes or lesions noted and dry skin Neuro General: oriented to person, oriented to place and oriented to time Cranial nerves: Yes Equal, round and reactive pupils present Speech: No Abnormal speech present Gait exam (Neuro): Normal gait present Motor exam (neuro): no tremor noted Extrem Right upper extremity: full ROM Left upper extremity: full ROM Right lower extremity: full ROM; no edema Left lower extremity: full ROM; no edema Psych Mental Status: mental status grossly normal Speech and movement: Normal speech and movement present Affect: normal affect Attitude: cooperative Thought process: Normal thought process present Coding Level of Care Code Est Pt Level 4 (66786) Diagnoses Hypertension, unspecified type I10 Hypertension type: unspecified MDD (major depressive disorder), recurrent episode, moderate F33.1 Borderline high cholesterol E78.9 Attention deficit hyperactivity disorder (ADHD), predominantly inattentive type F90.0 Attention deficit-hyperactivity disorder type: predominantly inattentive Additional Codes PALMER-7 Assessment Billing - PALMER-7 Assessment Tool: PALMER-7 Assessment [id number] ([id number]) PHQ-9 - 95366 - PHQ-9 Billing: Yes ([id number]) Assessment & Plan Assessment & Plan (1) Hypertension: Code(s): I10 - Essential (primary) hypertension Category: Medical Qualifiers: Hypertension type: unspecified Qualified Code(s): I10 - Essential (primary) hypertension Plan: Patient's blood pressure elevated today in office. She reports she has not been monitoring her blood pressure at home, she has been anxious today in office. She will continue on hydrochlorothiazide and amlodipine 10 mg. Advised to monitor blood pressure at home closely and if above 140/90 will consider increasing hydrochlorothiazide dose. Goal blood pressure to be below 140/90 (2) MDD (major depressive disorder), recurrent episode, moderate: Code(s): F33.1 - Major depressive disorder, recurrent, moderate Category: Medical Plan: Patient's depression has been fairly well controlled with current medication. She is speaking with a mental health therapist and psychiatrist regularly. (3) Borderline high cholesterol: Code(s): E78.9 - Disorder of lipoprotein metabolism, unspecified Category: Medical Plan: Patient's most recent lipid panel showing borderline high total cholesterol. She will continue working on lifestyle and dietary modifications to reduce her cholesterol. (4) ADHD: Code(s): F90.9 - Attention-deficit hyperactivity disorder, unspecified type Category: Medical Qualifiers: Attention deficit-hyperactivity disorder type: predominantly inattentive Qualified Code(s): F90.0 - Attention-deficit hyperactivity disorder, predominantly inattentive type Plan: As per HPI patient is ADHD is now being treated by her psychiatrist and her attention and focus has been much better in. She is actually getting better sleep as of late since being placed back on stimulant ADHD medication Medications: Changed From hydrochlorothiazide 12.5 mg PO DAILY 30 days 30 tabs 0RF I10 - Essential (primary) hypertension To hydrochlorothiazide 12.5 mg PO DAILY 90 tabs 1RF 90 days I10 - Essential (primary) hypertension Refilled topiramate 200 mg PO BID 180 tabs 3RF 90 days G43.109 - Migraine with aura, not intractable, without status migrainosus amlodipine 10 mg PO DAILY 90 tabs 1RF 3 months I10 - Essential (primary) hyp ertension
[2024-11-08 09:03] VITALS: BP 140/90
== END 2024-11-08 09:15 | disposition home or self-care (01) ==
LOC: HO.HMCH 08:35
PROVIDERS: PCP Physician Assistant; Visit Provider Physician Assistant
DX: I10 Essential (primary) hypertension (principal); F33.1 Major depressive disorder, recurrent, moderate; E78.9 Disorder of lipoprotein metabolism, unspecified; F90.0 Attention-deficit hyperactivity disorder, predominantly inattentive type

== ENCOUNTER → 2024-11-08 08:35 | Outpatient (BNVA) | payer BC, SELFPAY | PROVIDERS: PCP Physician Assistant; Visit Provider Physician Assistant | DX: I10 Essential (primary) hypertension (principal); F33.1 Major depressive disorder, recurrent, moderate; E78.9 Disorder of lipoprotein metabolism, unspecified; F90.0 Attention-deficit hyperactivity disorder, predominantly inattentive type; Z79.899 Other long term (current) drug therapy | CPT/HCPCS: 96127 ==